=== PATIENT | female | born 1965 | race Caucasian/White ===

== ENCOUNTER 2019-07-23 12:40 | Day surgery (SDC) | payer BC ==
[2012-10-22 11:02] VITALS: BP 140/98
[2019-07-23] MEDS ORDERED: Xylocaine 1% Vial 30 ML PF IJ ONE (12:41)
[2019-07-23] MEDS ORDERED: Sodium Chloride 0.9(Preservative Free) 10 ML IJ ONE (12:41)
[2019-07-23] MEDS ORDERED: Depo-Medrol 40 MG/ML IM ONE (12:41)
--- NOTE | 2019-07-23 15:07 | XRAY ---
Indication: Left L4-S1 JACKELINE. Intraoperative fluoroscopy was provided for 46 seconds. 4 digital spot images submitted for interpretation demonstrate posterior needle tips projecting over the expected course of the left L4 and L5 nerve roots. Small amount of contrast injected for needle tip placement. Correlate with intraoperative findings/report.
--- NOTE | 2019-07-23 15:41 | XRAY ---
46 seconds fluoroscopy time in surgery for left L4-S1 JACKELINE.
== END 2019-07-23 14:00 | disposition home or self-care (01) ==
LOC: SDC-PAIN 12:40
PROVIDERS: ATTEND Psychiatry & Neurology Pain Medicine
DX: M54.16 Radiculopathy, lumbar region (principal); I10 Essential (primary) hypertension; G25.81 Restless legs syndrome; F41.0 Panic disorder [episodic paroxysmal anxiety]; F32.9 Major depressive disorder, single episode, unspecified; Z79.899 Other long term (current) drug therapy
CPT/HCPCS: 64483; 64484; 72100; 77003; J1030; J2001; Q9966

== ENCOUNTER 2019-08-27 15:52 | Day surgery (SDC) | payer BC ==
[2012-10-22 11:02] VITALS: BP 140/98
[2019-08-27] MEDS ORDERED: Depo-Medrol 40 MG/ML IM ONE (15:53)
[2019-08-27] MEDS ORDERED: Marcaine 0.5% SDV 10 ML IJ ONE (15:53)
[2019-08-27] MEDS ORDERED: Xylocaine 1% Vial 30 ML PF IJ ONE (15:53)
[2019-08-27] MEDS ORDERED: Lactated Ringers 1,000 ML IV ONE (18:24)
--- NOTE | 2019-08-27 19:30 | XRAY ---
Indication: Left knee injection. Intraoperative fluoroscopy was provided for 7 seconds. Single digital spot image submitted for interpretation demonstrates needle tip projecting over the left femur intercondylar notch. Small amount of contrast injected for needle tip placement. Correlate with intraoperative findings/report.
--- NOTE | 2019-08-27 19:30 | XRAY ---
Indication: Right knee injection. Intraoperative fluoroscopy was provided for 9 seconds. Single digital spot image submitted for interpretation demonstrates needle tip projecting over the right femur intercondylar notch. Small amount of contrast injected for needle tip placement. Correlate with intraoperative findings/report.
--- NOTE | 2019-08-28 13:33 | XRAY ---
9 seconds fluoroscopy time in surgery for right knee injection.
--- NOTE | 2019-08-28 13:33 | XRAY ---
7 seconds fluoroscopy time in surgery for left knee injection.
== END 2019-08-27 18:26 | disposition home or self-care (01) ==
LOC: SDC-PAIN 15:52
PROVIDERS: ATTEND Psychiatry & Neurology Pain Medicine
DX: M17.0 Bilateral primary osteoarthritis of knee (principal); Z79.899 Other long term (current) drug therapy
CPT/HCPCS: 20610; 73560; 77002; J1030; J2001; Q9966

== ENCOUNTER 2020-03-22 05:51 | Day surgery (SDC) | payer BC ==
[2020-03-22] MEDS ORDERED: Lactated Ringers 1,000 ML IV SCH (06:30)
[2020-03-22] MEDS ORDERED: DIPRIVAN 200 MG/20 ML IV ONE (07:28)
[2020-03-22] MEDS ORDERED: Xylocaine-Mpf 2% 5 Ml Vial ONE (07:52)
[2020-03-22 08:26] VITALS: O2SAT 97
[2020-03-22 08:44] VITALS: BP 153/90; PULSE 87
--- NOTE | 2020-03-22 16:14 | OP ---
SURGERY DATE: 03/22/2020 SURGERY TIME: 736 PREOPERATIVE DIAGNOSIS: 1. CHOKING IN THE MIDDLE OF THE NIGHT. POSTOPERATIVE DIAGNOSIS: 1. GASTROPARESIS. PROCEDURE: 1. Esophagogastroduodenoscopy. SURGEON: Dr. Woodson. ANESTHESIA: MAC, given by the Anesthesia Department. BRIEF HISTORY: The patient is a 54 y/o, obese, WF who reports she has been having trouble choking in the middle of the night. She reports that she does not feel anything coming up. They have tried her on some omeprazole with no significant relief. It was felt the patient needed to have endoscopic evaluation. The patient was appraised of the risks of the procedure including the risk of perforation, phlebitis, untoward reaction to medication, bleeding, and missed lesions. The patient verbalized her understanding and desired to have the procedure performed. DESCRIPTION OF PROCEDURE: The patient was given the medications by the Anesthesia Department. She had continuous pulse oximetry, ECG monitoring, intermittent BP monitoring, and end tidal CO2 monitoring during the examination. She was placed in the left lateral decubitus position. A bite block was placed and the flexible Olympus gastroscope was used to intubate the oropharynx. The scope was passed in the esophagus which appeared to be normal throughout its length. The stomach was entered where large amounts of retained gastric food products were seen. We were unable to suction it clear. The gastric rugal folds distended nicely with the insufflation of air. The scope was passed along the greater curvature of the stomach to the antrum. The pylorus was encountered and intubated. The duodenum was found to be normal. The scope was withdrawn towards the stomach again. A retroflex view was obtained. However, we were unable to see the esophagogastric junction due to the large amounts of gastric food products. Again, we tried to suction this clear, but precluded our evaluation of the lower esophageal sphincter from below. There did not appear to be any obvious hiatal hernia that we could see during the procedure. The scope was removed from the patient who tolerated the procedure well and was sent back to OP recovery in good condition.
== END 2020-03-22 08:52 | disposition home or self-care (01) ==
LOC: SDC 05:51
PROVIDERS: ATTEND Family Medicine
DX: K31.84 Gastroparesis (principal); Z79.899 Other long term (current) drug therapy
CPT/HCPCS: J2704

== ENCOUNTER 2020-06-21 12:44 | Emergency (ER) | payer BC ==
[2020-06-21] MEDS ORDERED: Zofran 4 MG/2 ML VIAL ONE (13:00)
[2020-06-21] MEDS ORDERED: Sodium Chloride 0.9% 1000 ML 1,000 ML ONE (13:00)
[2020-06-21] MEDS ORDERED: Zofran 4 MG/2 ML VIAL IV ONE (13:28)
[2020-06-21] MEDS ORDERED: Sodium Chloride 0.9% 1000 ML 1,000 ML IV STA (13:28)
[2020-06-21 14:11] LABS: Absolute Neutrophil Ct (ANC) 1.74 (1.4-6.9); Basophil (Absolute #) 0 (0-0.4); Eosinophil % 0.7 % (0.00-5.0); Eosinophil (Absolute #) 0.02 (0-0.5); Hematocrit 42.3 % (35-47); Lymphocyte (Absolute #) 0.69 (1.0-4.6); Lymphocytes % 25.7 % (24.0-44.0); Mean Cell Volume 90.8 fl (78-100); Mean Corpuscular Hgb Concent. 33.1 g/dl (32-36); Mean Platelet Volume 12.8 fl (7.5-11.0); Monocyte (Absolute #) 0.24 (0.0-1.3); Monocytes % 8.9 % (0.0-12.0); Neutrophil % 64.7 % (36.0-66.0); Platelet Count 133 K/mm3 (150-450); Red Blood Count 4.66 M/mm3 (4.1-5.4); Red Cell Distribution Width 14.4 % (11.5-14.0); White Blood Count 2.7 K/mm3 (4.0-10.5)
[2020-06-21 14:22] LABS: ALBUMIN 4.2 g/dL (3.5-5.0); ALKALINE PHOSPHATASE 85 U/L (38-126); ANION GAP 11.3 MEQ/L (5-15); BLOOD UREA NITROGEN 22 mg/dL (7-17); CHLORIDE 99 mmol/L (98-107); Calcium 8.5 mg/dL (8.4-10.2); Carbon Dioxide 29 mmol/L (22-30); Creatinine 1 0.95 mg/dL (0.52-1.04); EST GLOMERULAR FILTRATION RATE > 60.0 ML/MIN; Glucose 128 mg/dL (74-106); LIPASE 249 U/L (23-300); Potassium 3.1 mmol/L (3.5-5.1); SGOT/AST 124 U/L (14-36); SGPT/ALT 105 U/L (0-35); SODIUM 137 mmol/L (137-145); Total Protein 7.5 g/dL (6.3-8.2)
[2020-06-21 14:53] LABS: MAGNESIUM 2.3 mg/dL (1.6-2.3); TSH, 3RD Generation 3.3 mIU/L (0.47-4.68)
--- NOTE | 2020-06-21 15:19 | ERPHSYRPT ---
- History of Present Illness Time Seen by Provider: 06/21/20 13:10 Source: patient Exam Limitations: no limitations Patient Subjective Stated Complaint: covid positive with vomiting, diarrhea, no energy Triage Nursing Assessment: Pt brought to the ER by her son, pt was tested on Sunday for Covid and got + results on Sunday, pt has been laying in bed for the past several days not eating or drinking, pt vomits and has diarrhea everytime she attempts to put something in her mouth, skin n/w/d, afebrile, vitals wnl, denies pain, no energy or strength, other family member are positive but asymptomatic, lungs clear, bowel sounds heard in all 4 Physician History: 55 years old female presented in the ER with chief complaint of gastroenteritis with generalized weakness fatigue. Patient was tested positive last week for COVID-19 as she was feeling sick for the last 10 days. She is having multiple episodes of nonprojectile, nonbilious vomiting with no hematemesis and also loose watery stool. Patient reports she is not able to hold much down. Denies any abdominal pain fever or chills. Denies any chest pain palpitations or shortness of breath. Denies any cough. She is having generalized body aches. She feels fatigued and tired with no energy to do her routine activities. Patient feels dehydrated. Timing/Duration: day(s) (10), gradual onset, worse Severity: moderate Associated Symptoms: nausea, vomiting, loss of appetite, malaise, weakness, No abdominal pain, No shortness of breath, No heartburn, No cough, No chills, No chest pain, No fever, No headaches, No seizure Allergies/Adverse Reactions: No Known Drug Allergies Allergy (Verified 03/22/20 06:08) Home Medications: Lisinopril/Hydrochlorothiazide [Lisinopril-Hctz 20-12.5 mg Tab] 1 tab PO DAILY 10/22/12 [History] Venlafaxine HCl ER 75 mg [Effexor XR 75 MG] 75 mg PO .1600 06/02/15 [History] Venlafaxine HCl [Venlafaxine HCl ER] 150 mg PO DAILY 06/02/15 [History] Ergocalciferol (Vitamin D2) [Vitamin D2] 50,000 unit PO Q7D 03/16/20 [History] Gabapentin 600 mg PO TID 03/16/20 [History] Levothyroxine Sodium 50 Mcg [Synthroid 50 Mcg] 50 mcg PO DAILY 03/16/20 [History] Omeprazole 20 mg PO DAILY 03/16/20 [History] Phentermine HCl [Adipex-P] 37.5 mg PO DAILY 03/16/20 [History] Hx Tetanus, Diphtheria Vaccination/Date Given: Yes Hx Influenza Vaccination/Date Given: Yes Hx Pneumococcal Vaccination/Date Given: Yes Immunizations Up to Date: Yes Travel Risk - International Travel Have you traveled outside of the country in past 3 weeks: No - Coronavirus Screening Are you exhibiting any of the following symptoms?: Yes Symptoms: Vomiting/Diarrhea, Loss of Taste or Smell, Headaches/Body Aches/Fatigue Close contact with a COVID-19 positive Pt in past 14-21 Days: Yes - Review of Systems Constitutional: Fatigue, Malaise, Weakness Eyes: No Symptoms Ears, Nose, & Throat: No Symptoms Respiratory: No Symptoms Cardiac: No Symptoms Abdominal/Gastrointestinal: Nausea, Vomiting, Diarrhea Genitourinary Symptoms: No Symptoms Musculoskeletal: Myalgias Skin: No Symptoms Neurological: No Symptoms Psychological: No Symptoms Endocrine: No Symptoms Hematologic/Lymphatic: No Symptoms Immunological/Allergic: No Symptoms - Past Medical History Pertinent Past Medical History: Yes Neurological History: Migraines, TIA ENT History: No Pertinent History Cardiac History: Hypertension Respiratory History: Asthma, Sleep Apnea Endocrine Medical History: Hypothyroidism Musculoskeletal History: Osteoarthritis GI Medical History: GERD History: No Pertinent History Psycho-Social History: Depression Female Reproductive Disorders: No Pertinent History Other Medical History: CVA - Past Surgical History Past Surgical History: Yes Neuro Surgical History: No Pertinent History Cardiac: No Pertinent History Respiratory: No Pertinent History Gastrointestinal: Cholecystectomy Genitourinary: No Pertinent History Musculoskeletal: No Pertinent History Female Surgical History: Hysterectomy, Lumpectomy Other Surgical History: TONSILECTOMY, tubal reversal - Social History Smoking Status: Never smoker Exposure to second hand smoke: No Drug Use: none Patient Lives Alone: No - Nursing Vital Signs Nursing Vital Signs: Initial Vital Signs Temperature 98.7 F 06/21/20 12:49 Pulse Rate 97 H 06/21/20 12:49 Respiratory Rate 13 06/21/20 12:49 Blood Pressure 138/111 06/21/20 12:49 O2 Sat by Pulse Oximetry 98 06/21/20 12:49 Pain Scale Pain Intensity 0 - Physical Exam General Appearance: no apparent distress, alert Eye Exam: PERRL/EOMI, eyes nml inspection Ears, Nose, Throat Exam: normal ENT inspection, TMs normal, pharynx normal, moist mucous membranes Neck Exam: normal inspection, non-tender, supple, full range of motion Respiratory Exam: normal breath sounds, lungs clear Cardiovascular Exam: regular rate/rhythm, normal heart sounds Gastrointestinal/Abdomen Exam: soft, normal bowel sounds, No tenderness Back Exam: normal inspection, normal range of motion, No CVA tenderness Extremity Exam: normal inspection, normal range of motion Neurologic Exam: alert, oriented x 3, cooperative, vp respiratory II-XII nml as tested, normal mood/affect Skin Exam: normal color SpO2 Interpretation: normal SpO2: 98 O2 Delivery: Room Air - Course Nursing assessment & vital signs reviewed: Yes EKG Interpreted by Me: RATE, Sinus Rhythm, NORMAL AXIS, NORMAL INTERVALS, NORMAL QRS (97), Non-specific ST Changes (Inferior leads) Ordered Tests: Active Orders 24 hr Category Date Time Status EKG-ER Only STAT Care 06/21/20 13:28 Active IV Insertion STAT Care 06/21/20 13:28 Active NPO (ED) STAT Care 06/21/20 13:28 Active OBSTR/ACUTE ABDOMEN SERIES Stat Exams 06/21/20 13:28 Taken CBC W DIFF Stat Lab 06/21/20 13:55 Completed CMP Stat Lab 06/21/20 13:55 Completed LIPASE Stat Lab 06/21/20 13:55 Completed Lactic Acid Stat Lab 06/21/20 14:18 Completed MAG [MAGNESIUM] Stat Lab 06/21/20 13:55 Completed TROPONIN Q3H Lab 06/21/20 13:55 Completed TROPONIN Q3H Lab 06/21/20 16:30 Ordered TROPONIN Q3H Lab 06/21/20 19:30 Ordered TROPONIN Q3H Lab 06/21/20 22:30 Ordered TROPONIN Q3H Lab 06/22/20 01:30 Ordered TSH [TSH, 3RD Generation] Stat Lab 06/21/20 13:55 Completed UA W/RFX UR CULTURE Stat Lab 06/21/20 15:43 Ordered Medication Summary Discontinued Medications Generic Name Dose Route Start Last Admin Trade Name Freq PRN Reason Stop Dose Admin Sodium Chloride Confirm 06/21/20 13:00 Sodium Chloride 0.9% 1000 Ml Administered 06/21/20 13:01 Dose 1,000 mls @ ud .ROUTE .STK-MED ONE Sodium Chloride 1,000 mls @ 999 mls/hr 06/21/20 13:28 06/21/20 15:49 Sodium Chloride 0.9% 1000 Ml IV 06/21/20 14:28 Infused .Q1H1M STA Infusion Ondansetron HCl Confirm 06/21/20 13:00 Zofran 4 Mg/2 Ml Vial Administered 06/21/20 13:01 Dose 4 mg .ROUTE .STK-MED ONE Ondansetron HCl 4 mg 06/21/20 13:28 06/21/20 13:05 Zofran 4 Mg/2 Ml Vial IV 06/21/20 13:29 4 mg STAT ONE Administration Lab/Rad Data: Laboratory Result Diagrams 06/21/20 13:55 06/21/20 13:55 Laboratory Results 06/21/20 06/21/20 06/21/20 Range/Units 14:18 13:55 13:55 WBC (4.0-10.5) K/mm3 RBC (4.1-5.4) M/mm3 Hgb (12.0-16.0) gm/dl Hct (35-47) % MCV (78-100) fl MCH (26-32) pg MCHC (32-36) g/dl RDW (11.5-14.0) % Plt Count (150-450) K/mm3 MPV (7.5-11.0) fl Gran % (36.0-66.0) % Eos # (Auto) (0-0.5) Absolute Lymphs (auto) (1.0-4.6) Absolute Monos (auto) (0.0-1.3) Lymphocytes % (24.0-44.0) % Monocytes % (0.0-12.0) % Eosinophils % (0.00-5.0) % Basophils % (0.0-0.4) % Absolute Granulocytes (1.4-6.9) Basophils # (0-0.4) Sodium (137-145) mmol/L Potassium (3.5-5.1) mmol/L Chloride (98-107) mmol/L Carbon Dioxide (22-30) mmol/L Anion Gap (5-15) MEQ/L BUN (7-17) mg/dL Creatinine (0.52-1.04) mg/dL Estimated GFR ML/MIN Glucose (74-106) mg/dL Lactic Acid 2.3 H (0.4-2.0) Calcium (8.4-10.2) mg/dL Magnesium 2.3 (1.6-2.3) mg/dL Total Bilirubin (0.2-1.3) mg/dL AST (14-36) U/L ALT (0-35) U/L Alkaline Phosphatase (38-126) U/L Troponin I < 0.012 (0.000-0.034) ng/mL Serum Total Protein (6.3-8.2) g/dL Albumin (3.5-5.0) g/dL Lipase (23-300) U/L TSH 3rd Generation 3.300 (0.47-4.68) mIU/L 06/21/20 06/21/20 Range/Units 13:55 13:55 WBC 2.7 L (4.0-10.5) K/mm3 RBC 4.66 (4.1-5.4) M/mm3 Hgb 14.0 (12.0-16.0) gm/dl Hct 42.3 (35-47) % MCV 90.8 (78-100) fl MCH 30.0 (26-32) pg MCHC 33.1 (32-36) g/dl RDW 14.4 H (11.5-14.0) % Plt Count 133 L (150-450) K/mm3 MPV 12.8 H (7.5-11.0) fl Gran % 64.7 (36.0-66.0) % Eos # (Auto) 0.02 (0-0.5) Absolute Lymphs (auto) 0.69 L (1.0-4.6) Absolute Monos (auto) 0.24 (0.0-1.3) Lymphocytes % 25.7 (24.0-44.0) % Monocytes % 8.9 (0.0-12.0) % Eosinophils % 0.7 (0.00-5.0) % Basophils % 0.0 (0.0-0.4) % Absolute Granulocytes 1.74 (1.4-6.9) Basophils # 0 (0-0.4) Sodium 137 (137-145) mmol/L Potassium 3.1 L (3.5-5.1) mmol/L Chloride 99 (98-107) mmol/L Carbon Dioxide 29 (22-30) mmol/L Anion Gap 11.3 (5-15) MEQ/L BUN 22 H (7-17) mg/dL Creatinine 0.95 (0.52-1.04) mg/dL Estimated GFR > 60.0 ML/MIN Glucose 128 H (74-106) mg/dL Lactic Acid (0.4-2.0) Calcium 8.5 (8.4-10.2) mg/dL Magnesium (1.6-2.3) mg/dL Total Bilirubin 1.00 (0.2-1.3) mg/dL AST 124 H (14-36) U/L ALT 105 H (0-35) U/L Alkaline Phosphatase 85 (38-126) U/L Troponin I (0.000-0.034) ng/mL Serum Total Protein 7.5 (6.3-8.2) g/dL Albumin 4.2 (3.5-5.0) g/dL Lipase 249 (23-300) U/L TSH 3rd Generation (0.47-4.68) mIU/L - Progress Progress: improved, re-examined Progress Note: 06/21/20 15:58 55 years old is evaluated for gastroenteritis symptoms with positive COVID-19. She is given a fluid bolus along with Zofran, on reevaluation feeling better. I have obtained x-rays acute abdomen series which are grossly negative, official read is pending. She has a low white count and platelets consistent with COVID- 19 infection. She is mildly dehydrated and has a lactate of 2.3. Does not seems to be in any distress or toxic appearance. She also has mildly low potassium and given oral potassium replacement. Do not think patient needs to be admitted or any further work-up in the ER, and will give her Zofran to go home. Discussed with patient in detail about symptoms/signs of worsening needing return to ER which he seems understanding. Counseled pt/family regarding: lab results, diagnosis, need for follow-up, rad results - Departure Departure Disposition: Home Clinical Impression: Viral syndrome, COVID-19, General weakness, Hypokalemia Condition: Stable Critical Care Time: No Referrals: RAYSHAWN CROWE MD [Primary Care Provider] - Follow Up with PCP/3 days Instructions: Viral Gastroenteritis, Hypokalemia (DC) Additional Instructions: Drink plenty of fluids. Take Zofran as needed. Follow-up with your primary care physician for reevaluation. Return to ER for worsening vomiting/diarrhea or if develop fever chills/shortness of breath etc. Prescriptions: Ondansetron ODT 4 MG [Zofran Odt 4 mg] 4 mg PO Q6H PRN PRN #10 tab.rapdis PRN Reason: Vomiting
[2020-06-21 16:09] LABS: Appearance SLIGHTLY CLOUDY (CLEAR); Bilirubin NEGATIVE (NEGATIVE); Blood NEGATIVE Ery/ul (0-5); Epithelial Cells RARE /HPF (FEW); Glucose NEGATIVE (NEGATIVE); Ketones NEGATIVE (NEGATIVE); Leukocyte Esterase NEGATIVE (NEGATIVE); Mucus SLIGHT /HPF (NEGATIVE); Nitrite NEGATIVE (NEGATIVE); Protein,Urine Dip 30 (Negative); Specific Gravity 1.023 (1.005-1.025); Urobilinogen NEGATIVE mg/dL (0-1)
[2020-06-21 16:32] VITALS: BP 124/81; PULSE 84; O2SAT 96
--- NOTE | 2020-06-21 18:27 | XRAY ---
Indication: Vomiting and diarrhea. COVID 19 positive. Comparison: Chest exam June 02, 2015. 2 views abdomen demonstrate nonspecific nonobstructed bowel gas pattern with previous cholecystectomy. Solid organs are unremarkable. Osseous structures intact with mild lumbar degenerative spondylosis and mild curvature thoracolumbar scoliosis. Single frontal chest underinflated with minimal bibasilar subsegmental atelectasis/scarring. No focal infiltrate, consolidation, or large effusion. Heart is not enlarged. Impression: Nonacute nonobstructed abdomen. Nonacute underinflated chest.
== END 2020-06-21 16:48 | disposition home or self-care (01) ==
LOC: ED 12:44
DX: B34.9 Viral infection, unspecified (principal)
CPT/HCPCS: 36415; 74022; 80053; 81001; 83605; 83690; 83735; 84443; 84484; 85025; 93005; 96360; 96374; 99284; J2405

== ENCOUNTER 2025-07-11 15:19 | Observation (INO) | payer BC ==
--- NOTE | 2025-07-11 15:46 | ERPHSYRPT ---
- History of Present Illness Source: patient, EMS, old records Exam Limitations: no limitations Patient Subjective Stated Complaint: PT HERE FOR NUMBNESS TO LEFT ARM AND STARTED ABOUT 2 HOURS AGO AND NOW STATES NUMBNESS TO FACE, NO INJURY, SHE STATES SHE WAS DRIVING WHEN IT HAPPENED Triage Nursing Assessment: PT ALERT, WALKED IN, NO LIMP, RESP EASY, SKIN W/D/P. MOVES ALLL EXT WELL, GRIKP EQUAL, AND STRONG, Timing/Duration: today, improved Severity: mild Character of Deficits: altered sensation (Left facial and left upper extremity numbness), Left Facial Deficits: no difficulties Baseline/Normal Cognition: alert oriented x 3 Current Cognition: alert oriented x 3 Baseline Gait: walks w/o assistance Associated Symptoms: denies symptoms, No confusion, No loss of consciousness, No numbness/tingling in legs/feet, No seizures, No vision changes, No chest pain, No headache Hx Tetanus, Diphtheria Vaccination/Date Given: Yes Hx Influenza Vaccination/Date Given: No Hx Pneumococcal Vaccination/Date Given: Yes Immunizations Up to Date: Yes <JACKI SOUZA - Last Filed: 07/11/25 19:14> <CHRIS HASTINGS - Last Filed: 07/11/25 22:03> - History of Present Illness Time Seen by Provider: 07/11/25 15:35 Physician History: This is an overweight 60-year-old white female patient who arrives by private vehicle and is a patient of Dr. Aguila secondary to sudden onset of left arm numbness followed by left facial numbness that occurred while the patient was driving a car. Patient denies any type of injury. There is been no new medications. She has never had this sensation before. She denies chest pain. She denies shortness of breath. Patient has no other symptoms. By the time she arrived to the emergency department her symptoms are still present but have improved significantly. Patient has a history of diabetes, hypothyroidism, depression. (JACKI SOUZA) Allergies/Adverse Reactions: No Known Drug Allergies Allergy (Verified 07/11/25 15:27) Home Medications: Venlafaxine HCl ER 75 mg [Effexor XR 75 MG] 75 mg PO .1600 06/02/15 [History] Venlafaxine HCl [Venlafaxine HCl ER] 150 mg PO DAILY 06/02/15 [History] Ergocalciferol (Vitamin D2) [Vitamin D2] 50,000 unit PO Q7D 03/16/20 [History] Gabapentin 600 mg PO TID 03/16/20 [History] Levothyroxine Sodium 50 Mcg [Synthroid 50 Mcg] 125 mcg PO DAILY 03/16/20 [History] Semaglutide [Ozempic] 2 mg SQ UD 07/11/25 [History] Travel Risk - International Travel Have you traveled outside of the country in past 3 weeks: No - Emerging Infectious Disease Are you exhibiting symptoms associated with any current EIDs: No <JACKI SOUZA - Last Filed: 07/11/25 19:14> - Review of Systems Constitutional: No Symptoms Eyes: No Symptoms Ears, Nose, & Throat: No Symptoms Respiratory: No Symptoms Cardiac: No Symptoms Abdominal/Gastrointestinal: No Symptoms Genitourinary Symptoms: No Symptoms Musculoskeletal: No Symptoms Skin: No Symptoms Neurological: Parasthesia (Left face and left upper extremity), No Dizziness, No Headache, No Paralysis, No Speech Changes Psychological: No Symptoms Endocrine: No Symptoms Hematologic/Lymphatic: No Symptoms Immunological/Allergic: No Symptoms All Other Systems: Reviewed and Negative <JACKI SOUZA - Last Filed: 07/11/25 19:14> - Past Medical History Pertinent Past Medical History: Yes Neurological History: Peripheral Neuropathy, TIA, Other ENT History: No Pertinent History Respiratory History: Other Endocrine Medical History: Hypothyroidism Musculoskeletal History: Fractures, Osteoarthritis GI Medical History: GERD History: No Pertinent History Psycho-Social History: Depression Female Reproductive Disorders: No Pertinent History Other Medical History: 2014 HAD SEIZURE/STROKE EPISODE WITH SLURRING OF WORDS AND WEAKNESS LEFT SIDE - NO RESIDUAL. HX OF COVID 05/2020. FX LEFT LOWER LEG WHEN LEG WAS PINNED BY FORK LIFT - TX'D WITH CAST IN 2013 - Past Surgical History Past Surgical History: Yes Neuro Surgical History: No Pertinent History Cardiac: No Pertinent History Respiratory: No Pertinent History Gastrointestinal: Cholecystectomy Genitourinary: No Pertinent History Musculoskeletal: No Pertinent History Female Surgical History: Hysterectomy, Section, Lumpectomy Other Surgical History: TONSILECTOMY, tubal reversal - Social History Smoking Status: Never smoker Exposure to second hand smoke: No Drug Use: none - Social Determinants of Health Will the patient participate in the screening: Yes Do you worry about a steady place to live?: No Do you have any problems with any of the following?: No known problems In the past 12 months,have you had to go without utilities?: No Transportation Issues: No Has anyone in your support network made you feel unsafe?: No Have you or anyone in your house had to go w/o enough food: No <JACKI SOUZA - Last Filed: 07/11/25 19:14> - [place] Coma Scale Best Eye Response ([place]): (4) open spontaneously Best Verbal Response ([place]): (5) oriented Best Motor Response ([place]): (6) obeys commands Jennifer Total: 15 - Physical Exam General Appearance: no apparent distress, alert, anxiety Eye Exam: bilateral eye: normal inspection, PERRL, EOMI Ears, Nose, Throat Exam: normal ENT inspection, moist mucous membranes Neck Exam: normal inspection, non-tender, supple, full range of motion Respiratory: normal breath sounds, lungs clear, airway intact, No chest tenderness, No respiratory distress Cardiovascular: regular rate/rhythm, normal heart sounds, normal peripheral pulses Gastrointestinal: soft, normal bowel sounds, No tenderness Pelvic Exam: not done Rectal Exam: not done Back Exam: normal inspection, normal range of motion, No CVA tenderness, No vertebral tenderness Extremity Exam: normal inspection, normal range of motion, pelvis stable Mental Status: alert, oriented x 3, cooperative layout man Exam: normal hearing, normal speech, PERRL, tongue midline Coordination/Gait: normal finger to nose, normal gait, normal cerebellar function Motor/Sensory: no motor deficit, no sensory deficit Skin Exam: normal color, warm, dry SpO2 Interpretation: normal SpO2: 98 O2 Delivery: Room Air <JACKI SOUZA - Last Filed: 07/11/25 19:14> - Nursing Vital Signs Nursing Vital Signs: Initial Vital Signs Temperature 96.9 F 07/11/25 15:32 Pulse Rate 77 07/11/25 15:32 Respiratory Rate 14 07/11/25 15:32 Blood Pressure 150/111 07/11/25 15:32 O2 Sat by Pulse Oximetry 98 07/11/25 15:32 Pain Scale Pain Intensity 0 - Course Nursing assessment & vital signs reviewed: Yes <JACKI SOUZA - Last Filed: 07/11/25 19:14> Ordered Tests: Active Orders 24 hr Category Date Time Status Call Admit Doctor for Orders ON ADMISSION Care 07/11/25 21:43 Active Cylindrical Mixer STAT Care 07/11/25 15:46 Completed Code Status Order ROUTINE Care 07/11/25 21:43 Active EKG-ER Only STAT Care 07/11/25 15:46 Completed IV Insertion STAT Care 07/11/25 15:46 Completed NPO (ED) STAT Care 07/11/25 15:46 Completed Neuro Checks Q4H Care 07/11/25 21:[address] in Observation ROUTINE Care 07/11/25 21:43 Active Pulse Oximetry (ED) STAT Care 07/11/25 15:46 Completed Consult Neurology ROUTINE Cons 07/11/25 16:49 Completed House Regular Diet Diet 07/12/25 Breakfast Active CAROTID BILATERAL [US] Stat Exams 07/11/25 19:[address] ANGIOGRAPHY NECK [CT] Stat Exams 07/11/25 16:26 Completed CTA HEAD W AND/OR WO CONTRAST [CT] Stat Exams 07/11/25 16:25 Completed HEAD WITHOUT CONTRAST [CT] Stat Exams 07/11/25 15:25 Completed CBC W DIFF Stat Lab 07/11/25 16:05 Completed CMP Stat Lab 07/11/25 16:05 Completed PROTIME WITH INR Stat Lab 07/11/25 16:05 Completed PTT Stat Lab 07/11/25 16:05 Completed TSH [TSH, 3RD Generation] Stat Lab 07/11/25 16:05 Completed UA W/RFX UR CULTURE Stat Lab 07/11/25 16:45 Completed Transfer Order Routine Transfer 07/11/25 Completed Lab/Rad Data: Laboratory Result Diagrams 07/11/25 16:05 07/11/25 16:05 Laboratory Results 07/11/25 07/11/25 07/11/25 Range/Units 16:45 16:05 16:05 WBC (3.98-10.04) x10^3/uL RBC (3.93-5.22) x10^6/uL Hgb (11.2-15.7) g/dL Hct (34.1-44.9) % MCV (79.4-94.8) fL MCH (25.6-32.2) pg MCHC (32.2-35.5) g/dL RDW (11.7-14.4) % Plt Count (182-369) x10^3/uL MPV (9.4-12.3) fL Gran % (34.0-71.1) % Immature Gran % (Auto) (0.001-0.429) % Nucleat RBC Rel Count (0.00-0.2) % Eos # (Auto) (0.04-0.36) x10^3/uL Immature Gran # (Auto) (0.001-0.031) x10^3u/L Absolute Lymphs (auto) (1.18-3.74) x10^3/uL Absolute Monos (auto) (0.24-0.86) x10^3/uL Absolute Nucleated RBC (0.00-0.012) x10^3u/L Lymphocytes % (19.3-51.7) % Monocytes % (4.7-12.5) % Eosinophils % (0.7-5.8) % Basophils % (0.1-1.2) % Absolute Granulocytes (1.56-6.13) x10^3/uL Basophils # (0.01-0.08) x10^3/uL PT (9.4-12.5) SECONDS INR (0.8-3.0) APTT (25.1-36.5) SECONDS Sodium 139 (135-145) mmol/L Potassium 3.2 L (3.5-5.1) mmol/L Chloride 102 (98-107) mmol/L Carbon Dioxide 26 (22-30) mmol/L Anion Gap 15.2 H (5-15) MEQ/L BUN 16 (7-17) mg/dL Creatinine 0.72 (0.52-1.04) mg/dL Estimated GFR 95.1 ML/MIN Glucose 101 (74-106) mg/dL Calcium 9.4 (8.4-10.2) mg/dL Total Bilirubin 2.40 H (0.2-1.3) mg/dL AST 29 (14-36) U/L ALT 20 (0-35) U/L Alkaline Phosphatase 87 (38-126) U/L Serum Total Protein 7.5 (6.3-8.2) g/dL Albumin 4.5 (3.5-5.0) g/dL TSH 3rd Generation 0.480 (0.470-4.680) mIU/L Urine Color Dark Yellow A (Yellow) Urine Appearance Clear (Clear) Urine pH 6.5 (4.6-8.0) Ur Specific [place] >=1.030 A (1.005-1.030) Urine Protein Trace A (Negative) Urine Glucose (UA) >=1000 A (Negative) mg/dL Urine Ketones >=160 A (Negative) Urine Blood Negative (Negative) Urine Nitrite Negative (Negative) Urine Bilirubin Negative (Negative) Urine Urobilinogen >=8.0 A (0.2) mg/dL Ur Leukocyte Esterase Negative (Negative) U Hyaline Cast (Auto) NONE SEEN (0-2) /LPF Urine Microscopic RBC 0-2 (0-5) /HPF Urine Microscopic WBC 6-10 A (0-5) /HPF Ur Epithelial Cells None Seen (None Seen) /HPF Urine Bacteria None Seen (None Seen) /HPF Urine Culture Reflexed NO (NO) 07/11/25 07/11/25 Range/Units 16:05 16:05 WBC 7.6 (3.98-10.04) x10^3/uL RBC 5.02 (3.93-5.22) x10^6/uL Hgb 15.1 (11.2-15.7) g/dL Hct 43.9 (34.1-44.9) % MCV 87.5 (79.4-94.8) fL MCH 30.1 (25.6-32.2) pg MCHC 34.4 (32.2-35.5) g/dL RDW 13.7 (11.7-14.4) % Plt Count 241 (182-369) x10^3/uL MPV 10.9 (9.4-12.3) fL Gran % 74.4 H (34.0-71.1) % Immature Gran % (Auto) 0.1 (0.001-0.429) % Nucleat RBC Rel Count 0.0 (0.00-0.2) % Eos # (Auto) 0.04 (0.04-0.36) x10^3/uL Immature Gran # (Auto) 0.01 (0.001-0.031) x10^3u/L Absolute Lymphs (auto) 1.42 (1.18-3.74) x10^3/uL Absolute Monos (auto) 0.40 (0.24-0.86) x10^3/uL Absolute Nucleated RBC 0.00 (0.00-0.012) x10^3u/L Lymphocytes % 18.8 L (19.3-51.7) % Monocytes % 5.3 (4.7-12.5) % Eosinophils % 0.5 L (0.7-5.8) % Basophils % 0.9 (0.1-1.2) % Absolute Granulocytes 5.63 (1.56-6.13) x10^3/uL Basophils # 0.07 (0.01-0.08) x10^3/uL PT 12.0 (9.4-12.5) SECONDS INR 1.07 (0.8-3.0) APTT 26.9 (25.1-36.5) SECONDS Sodium (135-145) mmol/L Potassium (3.5-5.1) mmol/L Chloride (98-107) mmol/L Carbon Dioxide (22-30) mmol/L Anion Gap (5-15) MEQ/L BUN (7-17) mg/dL Creatinine (0.52-1.04) mg/dL Estimated GFR ML/MIN Glucose (74-106) mg/dL Calcium (8.4-10.2) mg/dL Total Bilirubin (0.2-1.3) mg/dL AST (14-36) U/L ALT (0-35) U/L Alkaline Phosphatase (38-126) U/L Serum Total Protein (6.3-8.2) g/dL Albumin (3.5-5.0) g/dL TSH 3rd Generation (0.470-4.680) mIU/L Urine Color (Yellow) Urine Appearance (Clear) Urine pH (4.6-8.0) Ur Specific [place] (1.005-1.030) Urine Protein (Negative) Urine Glucose (UA) (Negative) mg/dL Urine Ketones (Negative) Urine Blood (Negative) Urine Nitrite (Negative) Urine Bilirubin (Negative) Urine Urobilinogen (0.2) mg/dL Ur Leukocyte Esterase (Negative) U Hyaline Cast (Auto) (0-2) /LPF Urine Microscopic RBC (0-5) /HPF Urine Microscopic WBC (0-5) /HPF Ur Epithelial Cells (None Seen) /HPF Urine Bacteria (None Seen) /HPF Urine Culture Reflexed (NO) - Progress Progress: improved, re-examined <JACKI SOUZA - Last Filed: 07/11/25 19:14> - Progress Counseled pt/family regarding: lab results, diagnosis, need for follow-up, rad results <CHRIS HASTINGS - Last Filed: 07/11/25 22:03> - Progress Progress Note: 07/11/25 16:44 My medical decision making and the assignment of at least moderate complexity to high complexity is based on review of the patient's past medical history, review patient medication list, review of the patient drug allergy list, history present illness and physical findings on examination. The workup in this patient includes stat CT scan of the head without contrast, IV line placement, CBC, CMP, magnesium level, troponin level, twelve-lead EKG, urinalysis, [id number] stat glucose. If the CT scan of the head without contrast negative we will proceed with obtaining a teleneurology consultation, CT of the head with contrast and CT angiography of the neck. Differential diagnosis includes but is not limited to TIA, CVA, intracranial head bleed, electrolyte abnormalities, metabolic abnormality, urinary tract infection, dehydration, arrhythmia, acute thyroid abnormality 07/11/25 19:14 I am transferring care of this patient to Dr. Hastings at shift change. He will follow-up on pending study results and make final disposition. (JACKI SOUZA) Assumed care at 1900. CTA neck showed area near the right cervical internal carotid artery concerning for artifact versus dissection recommending ultrasound evaluation. Ultrasound was able to come into evaluate which ruled out dissection of the right internal carotid artery. Patient was asymptomatic at the time. Low suspicion for acute dissection. Patient to be admitted to the floor for MRI and echo on Sunday. Discussed admission with the hospitalist, Dr. Vallejo, at 2022 who accepted. (CHRIS HASTINGS) Medical Desision Making - Independent Historian Additional History obtained from: Family <JACKI SOUZA - Last Filed: 07/11/25 19:14> - Discussion of managment Care discussed with:: hospitalist Reviewed:: Test results, Need for additional workup Agreed on:: Treatment plan, place in obs Will see patient: in hospital - Diagnostic Testing Diagnostic test were ordered, analyzed, and reviewed by me: Yes Radiological Interpretation: Interpreted by me, Reviewed by me, Teleradiologist Report - Risk of complications The pt has a high risk of morbidity or mortality based on: Decision regarding hospitilization or escalation of hosp level of care <CHRIS HASTINGS - Last Filed: 07/11/25 22:03> - Departure Departure Disposition: Transfer Critical Care Time: Yes Critical Care Time(excluding separately billable procedures): Critical 30-74 mins (45) <JACKI SOUZA - Last Filed: 07/11/25 19:14> - Departure Departure Disposition: Observation <CHRIS HASTINGS - Last Filed: 07/11/25 22:03> - Departure Clinical Impression: Left facial numbness, Left arm numbness Condition: Stable
[2025-07-11 16:04] LABS: BASOPHIL % 0.9 % (0.1-1.2); Basophil (Absolute #) 0.07 x10^3/uL (0.01-0.08); Eosinophil (Absolute #) 0.04 x10^3/uL (0.04-0.36); Hematocrit 43.9 % (34.1-44.9); Hemoglobin 15.1 g/dL (11.2-15.7); IMMATURE GRAN # 0.01 x10^3u/L (0.001-0.031); IMMATURE GRAN % 0.1 % (0.001-0.429); Lymphocyte (Absolute #) 1.42 x10^3/uL (1.18-3.74); Mean Corpuscular Hemoglobin 30.1 pg (25.6-32.2); Mean Corpuscular Hgb Concent. 34.4 g/dL (32.2-35.5); Monocyte (Absolute #) 0.40 x10^3/uL (0.24-0.86); NUCLEATED RBC # 0.00 x10^3u/L (0.00-0.012); NUCLEATED RBC % 0.0 % (0.00-0.2); Platelet Count 241 x10^3/uL (182-369); Red Blood Count 5.02 x10^6/uL (3.93-5.22); White Blood Count 7.6 x10^3/uL (3.98-10.04)
--- NOTE | 2025-07-11 16:14 | XRAY ---
CLINICAL HISTORY: LEFT ARM NUMBNESS COMPARISON: No previous studies are available for comparison. TECHNIQUE: Axial non-contrast CT scan of the brain was performed from the skull base to the high parietal region. One of the following dose reduction techniques was utilized for this exam: automated exposure control, adjustment of the mA and/or kV according to patient size, and use of iterative reconstruction. CTDI: 53.92 mGy, DLP: 1016.25 mGy-cm. FINDINGS: Brain Parenchyma: Chronic deep white matter ischemia is noted, with exaggerated periventricular hypodensity. A right basal ganglia hypodense area of CSF density is consistent with an old infarction (series 2, images 26 and 27). The rest of the cerebral hemispheres, cerebellum, and brainstem demonstrate normal attenuation. There is no evidence of acute infarct, hemorrhage, or mass effect. There are no other abnormal areas of hypoattenuation or hyperattenuation. Ventricular System: The ventricles are normal in size and configuration. There is no evidence of hydrocephalus or ventricular enlargement. Subarachnoid Spaces: Cortical age-related involutional brain changes are noted, evidenced by prominent cortical sulci, widened subarachnoid spaces, and cisterns. There is no evidence of subarachnoid hemorrhage or extra-axial fluid collections. Cerebellum and Brainstem: There are no masses, lesions, or areas of abnormal density. Orbits: There is normal appearance of the globes, optic nerves, and extraocular muscles. There is no evidence of orbital masses or abnormal density. Sinuses: The scanned paranasal sinuses are clear. There is no evidence of sinusitis or mucosal thickening. Mastoid Air Cells: The mastoid air cells are clear. There is no evidence of mastoiditis. Skull: There is normal skull morphology. IMPRESSION: 1. No CT evidence of acute infarction or recent hemorrhage. If clinically suspected recent stroke, the MRI stroke protocol is recommended. 2. A right basal ganglia hypodense area of CSF density is consistent with an old infarction. 3. Chronic deep white matter ischemia. 4. Cortical age-related involutional brain changes. Electronically Signed by: Charlie Barnhart MD. (07/11/2025 16:13:31 EDT)
[2025-07-11 16:22] LABS: INR 1.07 (0.8-3.0); PROTIME 12.0 SECONDS (9.4-12.5); PTT 26.9 SECONDS (25.1-36.5)
[2025-07-11 17:41] LABS: Calcium 9.4 mg/dL (8.4-10.2); Carbon Dioxide 26.0 mmol/L (22-30); Creatinine 1 0.72 mg/dL (0.52-1.04); EST GLOMERULAR FILTRATION RATE 95.1 ML/MIN; Glucose 101.0 mg/dL (74-106); Potassium 3.2 mmol/L (3.5-5.1); SGOT/AST 29.0 U/L (14-36); SGPT/ALT 20.0 U/L (0-35); Total Protein 7.5 g/dL (6.3-8.2)
[2025-07-11 18:08] LABS: Glucose, Urine >=1000 mg/dL (Negative); Protein,Urine Dip Trace (Negative); RBC 0-2 /HPF (0-5)
--- NOTE | 2025-07-11 18:48 | XRAY ---
CLINICAL HISTORY: L facial and left side numbness COMPARISON: No previous studies are available for comparison. TECHNIQUE: CT angiography of the neck was performed following the intravenous administration of 80cc Isovue 370 iodinated contrast material. Axial images were obtained from the aortic arch to the vertex. Coronal and sagittal reformatted images were also reviewed. One of the following dose reduction techniques was utilized for this exam: automated exposure control, adjustment of the mA and/or kV according to patient size, and use of iterative reconstruction. One of these 3D techniques was utilized: Maximum Intensity Pixel (MIP), 3D reconstructed images, volume rendered images, or surface shaded rendering. FINDINGS: A hypodense linear area is noted along the proximal right cervical ICA, likely an artifact; however, Doppler US is advised to rule out dissection. Carotid arteries: The common, internal, and external carotid arteries are patent bilaterally, with no evidence of significant stenosis or aneurysm. There is no evidence of atherosclerotic plaque causing significant luminal narrowing. Vertebral arteries: The vertebral arteries are patent bilaterally, with no evidence of significant stenosis, aneurysm, or dissection. Thyroid gland: The thyroid gland is normal in size and appearance, with no focal lesions. Lymph nodes: There is no evidence of significant lymphadenopathy in the neck. Soft tissues: The soft tissues of the neck are unremarkable, with no evidence of masses or abnormal collections. Additional findings: Degenerative changes in the spine. IMPRESSION: 1. No evidence of significant stenosis or aneurysm. 2. A hypodense linear area is noted along the proximal right cervical ICA, likely an artifact; however, Doppler US is advised to rule out dissection. 3. Clinical correlation is advised. Electronically Signed by: Charlie Barnhart MD. (07/11/2025 18:48:10 EDT)
--- NOTE | 2025-07-11 19:08 | XRAY ---
CLINICAL HISTORY: L facial and left side numbness COMPARISON: Same-day head CT plain was reviewed. TECHNIQUE: CT angiography of the head was performed following the intravenous administration of iodinated contrast material. Contiguous axial images were obtained from the base of the skull to the vertex. Coronal and sagittal reformatted images were also reviewed. One of these 3D techniques was utilized: Maximum Intensity Pixel (MIP), 3D Reconstructed Images, Volume Rendered Images, Surface Shaded Rendering. One of the following dose reduction techniques was utilized for this exam. Automated exposure control, adjustment of the mA and/or kV according to patient size, and use of iterative reconstruction. FINDINGS: Intracranial Arteries: The intracranial arteries, including the anterior cerebral arteries, middle cerebral arteries, posterior cerebral arteries, basilar artery, and vertebral arteries, are all patent without evidence of significant stenosis, aneurysm, or dissection. There is no evidence of vascular malformations. Pala of [place]: The Pala of [place] is intact with no anatomical variations or abnormalities noted. All segments are well-visualized and normal in appearance. Venous System: The visualized portions of the venous system, including the dural venous sinuses, are patent with no evidence of thrombosis. Brain Parenchyma: The brain parenchyma shows no evidence of acute infarct, hemorrhage, or mass effect. The ventricles and sulci are normal in size and configuration. Bones: The bony structures of the skull are intact without evidence of fracture or destructive lesions. Soft Tissues: The visualized soft tissues of the head are unremarkable. Additional Findings: No other significant findings are noted. IMPRESSION: No evidence of significant vascular abnormalities, acute infarct, or hemorrhage. Advised clinical correlation. Electronically Signed by: Charlie Barnhart MD. (07/11/2025 19:06:31 EDT)
--- NOTE | 2025-07-11 20:26 | XRAY ---
Indication: Numbness. Two-dimensional sonogram and color Doppler imaging carotid arteries of the neck performed. Comparison: None Examination right carotid circulation demonstrates widely patent common carotid, carotid bulb, internal carotid, and external carotid arteries. PSV CCA is 52 cm/s. PSV ICA is 47 cm/s. ICA/CCA ratio 0.9. Normal antegrade vertebral artery flow. Examination left carotid circulation demonstrates widely patent common carotid, carotid bulb, internal carotid, and external carotid arteries. PSV CCA 64 cm/s. PSV ICA is 51 cm/s. ICA/CC ratio 0.8. Normal antegrade vertebral artery flow. Impression: Negative for aneurysm/dissection. Normal carotid arteries of the neck. Comment: Preliminary report was given.
--- NOTE | 2025-07-12 03:21 | PCM.HP ---
History of Present Illness - Chief Complaint Chief Complaint: obervation Date: 07/11/25 History of Present Illness: The patient is a 60-year-old female with a PMH of hypothyroidism, CVA, and peripheral neuropathy who presents to the emergency department with complaints of left-sided paresthesias. The patient reports that her symptoms started when she was driving at around 1 PM and experienced numbness of her entire left side. Reports that she also had the symptoms when she previously had a CVA in 2013 when she also had slurred speech. Notes that she fully recovered from that episode. Reports that her symptoms today lasted until about 6 PM and then resolved completely. Reports being at her baseline at the time of interview. Denied any additional complaints. Denied experiencing headaches, visual disturbances, speech impairments, or gait abnormalities. Denied experiencing chest discomfort, shortness of breath, fever, chills, cough. Also denies nausea, vomiting, abdominal pain, diarrhea. In the emergency department, a CT head revealed findings of a right basal ganglia old infarct with chronic deep white matter ischemia and age-related changes noted with no acute abnormalities. Head CTA was unremarkable with neck CTA showing findings possibly concerning for dissection with a follow-up Doppler ultrasound recommended, which was subsequently performed and was negative for aneurysm or dissection. Laboratory evaluation was reviewed with UA showing significant glucose and ketones, WBC count 7.6, hemoglobin 15.1, platelet count 241, sodium 139, potassium 3.2, total bilirubin 2.41 with BUN 16 and creatinine 0.72. The case was discussed with the ER provider in detail and chart was reviewed. Review of Systems: A complete and thorough review of system was performed and was negative except as stated in the HPI. Physical Examination: General: Well-nourished, in no acute distress. Obese HEENT: Head atruamatic normocephaic, PERRL, no scleral icterus, no oral lesions Cardiovascular: Regular rate and rhythm, S1S2 normal, no murmurs appreciated Respiratory: Clear to auscultation bilaterally, no wheezes, rales, rhonchi Abdomen: Soft, nontender, nondistended, normoactive bowel sounds, no guarding Musculoskeletal: Full range of motion. No obvious swelling or tenderness noted Neurological: Alert and oriented x 3. Strength 5/5 in all extremities grossly, no obvious focal deficits noted Psychiatric: Normal mood, affect, with cohesive thought process Assessment & Plan TIA with left-sided paresthesias - Order teleneurology consult - Initiate aspirin 81 mg p.o. daily and Lipitor 80 mg p.o. daily - Obtain echocardiogram - Brain MRI on Sunday morning - Neurochecks every 4 hours - Cardiac monitoring Elevated T bilirubini, unclear etiology - Obtain RUQ US Chronic conditions: Hypothyroidism, peripheral neuropathy - Resume patient's home Synthroid 125 mcg p.o. daily and gabapentin 600 mg p.o. 3 times daily DVT prophylaxis: Lovenox subcu CODE STATUS: Full code Medications & Allergies Home Medications: Home Medication List Venlafaxine HCl ER 75 mg [Effexor XR 75 MG] 75 mg PO .1600 06/02/15 [History Confirmed 07/11/25] Venlafaxine HCl [Venlafaxine HCl ER] 150 mg PO DAILY 06/02/15 [History Confirmed 07/11/25] Ergocalciferol (Vitamin D2) [Vitamin D2] 50,000 unit PO Q7D 03/16/20 [History Confirmed 07/11/25] Gabapentin 600 mg PO TID 03/16/20 [History Confirmed 07/11/25] Levothyroxine Sodium 50 Mcg [Synthroid 50 Mcg] 125 mcg PO DAILY 03/16/20 [History Confirmed 07/11/25] Semaglutide [Ozempic] 2 mg SQ UD 07/11/25 [History Confirmed 07/11/25] Allergies/Adverse Reactions: Allergies Allergy/AdvReac Type Severity Reaction Status Date / Time No Known Drug Allergies Allergy Verified 07/11/25 15:27 - Past Medical History Past Medical History: Yes Neurological History: Peripheral Neuropathy, TIA, Other ENT History: No Pertinent History Cardiac History: Hypertension Respiratory History: Other Endocrine Medical History: Hypothyroidism Musculoskelatal History: Fractures, Osteoarthritis GI Medical History: GERD History: No Pertinent History Pyscho-Social History: Depression Reproductive Disorders: No Pertinent History Comment: 2014 HAD SEIZURE/STROKE EPISODE WITH SLURRING OF WORDS AND WEAKNESS LEFT SIDE - NO RESIDUAL. HX OF COVID 05/2020. FX LEFT LOWER LEG WHEN LEG WAS PINNED BY FORK LIFT - TX'D WITH CAST IN 2013 - Past Surgical History Past Surgical History: Yes Neuro Surgical History: No Pertinent History Cardiac History: No Pertinent History Respiratory Surgery: No Pertinent History GI Surgical History: Cholecystectomy Genitourinary Surgical Hx: No Pertinent History Musculskeletal Surgical Hx: No Pertinent History Female Surgical History: Hysterectomy, Section, Lumpectomy Other Surgical History: TONSILECTOMY, tubal reversal - Social History Smoking Status: Never smoker Exposure to second hand smoke: No Alcohol: None Drug Use: none - Social Determinants of Health Will the patient participate in the screening: Yes Do you worry about a steady place to live?: No Do you have any problems with any of the following?: No known problems In the past 12 months,have you had to go without utilities?: No Have you or anyone in your house had to go without enough: No Transportation Issues: No Has anyone in your support network made you feel unsafe?: No Does the patient want assistance with any of the above?: No - Physical Exam Vital Signs: Vital Signs - 24 hr Temp Pulse Resp BP BP Pulse Ox 07/11/25 23:57 98.1 F 81 18 165/99 94 L 07/11/25 21:57 98.1 F 81 18 165/99 94 L 07/11/25 21:30 77 12 160/110 95 07/11/25 21:00 75 11 L 144/103 97 07/11/25 20:30 80 11 L 143/100 97 07/11/25 20:00 79 10 L 137/98 97 07/11/25 19:31 81 12 163/127 98 07/11/25 19:17 98 07/11/25 19:00 85 15 146/103 97 07/11/25 18:30 82 9 L 150/107 98 07/11/25 18:06 84 10 L 175/105 98 07/11/25 17:40 63 9 L 186/99 99 07/11/25 17:39 83 8 L 98 07/11/25 17:38 96 07/11/25 17:00 78 6 L 145/109 98 07/11/25 16:57 85 13 148/115 98 07/11/25 16:46 81 18 145/96 99 07/11/25 15:56 97 07/11/25 15:32 96.9 F 77 14 150/111 98 Results - Labs Lab/Micro Results: Lab Results-Last 24 Hours 07/11/25 07/11/25 07/11/25 Range/Units 16:05 16:05 16:05 WBC 7.6 (3.98-10.04) x10^3/uL RBC 5.02 (3.93-5.22) x10^6/uL Hgb 15.1 (11.2-15.7) g/dL Hct 43.9 (34.1-44.9) % MCV 87.5 (79.4-94.8) fL MCH 30.1 (25.6-32.2) pg MCHC 34.4 (32.2-35.5) g/dL RDW 13.7 (11.7-14.4) % Plt Count 241 (182-369) x10^3/uL MPV 10.9 (9.4-12.3) fL Gran % 74.4 H (34.0-71.1) % Immature Gran % (Auto) 0.1 (0.001-0.429) % Nucleat RBC Rel Count 0.0 (0.00-0.2) % Eos # (Auto) 0.04 (0.04-0.36) x10^3/uL Immature Gran # (Auto) 0.01 (0.001-0.031) x10^3u/L Absolute Lymphs (auto) 1.42 (1.18-3.74) x10^3/uL Absolute Monos (auto) 0.40 (0.24-0.86) x10^3/uL Absolute Nucleated RBC 0.00 (0.00-0.012) x10^3u/L Lymphocytes % 18.8 L (19.3-51.7) % Monocytes % 5.3 (4.7-12.5) % Eosinophils % 0.5 L (0.7-5.8) % Basophils % 0.9 (0.1-1.2) % Absolute Granulocytes 5.63 (1.56-6.13) x10^3/uL Basophils # 0.07 (0.01-0.08) x10^3/uL PT 12.0 (9.4-12.5) SECONDS INR 1.07 (0.8-3.0) APTT 26.9 (25.1-36.5) SECONDS Sodium (135-145) mmol/L Potassium (3.5-5.1) mmol/L Chloride (98-107) mmol/L Carbon Dioxide (22-30) mmol/L Anion Gap (5-15) MEQ/L BUN (7-17) mg/dL Creatinine (0.52-1.04) mg/dL Estimated GFR ML/MIN Glucose (74-106) mg/dL Calcium (8.4-10.2) mg/dL Total Bilirubin (0.2-1.3) mg/dL AST (14-36) U/L ALT (0-35) U/L Alkaline Phosphatase (38-126) U/L Serum Total Protein (6.3-8.2) g/dL Albumin (3.5-5.0) g/dL Free T4 (0.78-2.19) ng/dL TSH 3rd Generation 0.480 (0.470-4.680) mIU/L Urine Color (Yellow) Urine Appearance (Clear) Urine pH (4.6-8.0) Ur Specific Union (1.005-1.030) Urine Protein (Negative) Urine Glucose (UA) (Negative) mg/dL Urine Ketones (Negative) Urine Blood (Negative) Urine Nitrite (Negative) Urine Bilirubin (Negative) Urine Urobilinogen (0.2) mg/dL Ur Leukocyte Esterase (Negative) U Hyaline Cast (Auto) (0-2) /LPF Urine Microscopic RBC (0-5) /HPF Urine Microscopic WBC (0-5) /HPF Ur Epithelial Cells (None Seen) /HPF Urine Bacteria (None Seen) /HPF Urine Culture Reflexed (NO) 07/11/25 07/11/25 07/11/25 Range/Units 16:05 16:45 Unknown WBC (3.98-10.04) x10^3/uL RBC (3.93-5.22) x10^6/uL Hgb (11.2-15.7) g/dL Hct (34.1-44.9) % MCV (79.4-94.8) fL MCH (25.6-32.2) pg MCHC (32.2-35.5) g/dL RDW (11.7-14.4) % Plt Count (182-369) x10^3/uL MPV (9.4-12.3) fL Gran % (34.0-71.1) % Immature Gran % (Auto) (0.001-0.429) % Nucleat RBC Rel Count (0.00-0.2) % Eos # (Auto) (0.04-0.36) x10^3/uL Immature Gran # (Auto) (0.001-0.031) x10^3u/L Absolute Lymphs (auto) (1.18-3.74) x10^3/uL Absolute Monos (auto) (0.24-0.86) x10^3/uL Absolute Nucleated RBC (0.00-0.012) x10^3u/L Lymphocytes % (19.3-51.7) % Monocytes % (4.7-12.5) % Eosinophils % (0.7-5.8) % Basophils % (0.1-1.2) % Absolute Granulocytes (1.56-6.13) x10^3/uL Basophils # (0.01-0.08) x10^3/uL PT (9.4-12.5) SECONDS INR (0.8-3.0) APTT (25.1-36.5) SECONDS Sodium 139 (135-145) mmol/L Potassium 3.2 L (3.5-5.1) mmol/L Chloride 102 (98-107) mmol/L Carbon Dioxide 26 (22-30) mmol/L Anion Gap 15.2 H (5-15) MEQ/L BUN 16 (7-17) mg/dL Creatinine 0.72 (0.52-1.04) mg/dL Estimated GFR 95.1 ML/MIN Glucose 101 (74-106) mg/dL Calcium 9.4 (8.4-10.2) mg/dL Total Bilirubin 2.40 H (0.2-1.3) mg/dL AST 29 (14-36) U/L ALT 20 (0-35) U/L Alkaline Phosphatase 87 (38-126) U/L Serum Total Protein 7.5 (6.3-8.2) g/dL Albumin 4.5 (3.5-5.0) g/dL Free T4 1.41 (0.78-2.19) ng/dL TSH 3rd Generation (0.470-4.680) mIU/L Urine Color Dark Yellow A (Yellow) Urine Appearance Clear (Clear) Urine pH 6.5 (4.6-8.0) Ur Specific Union >=1.030 A (1.005-1.030) Urine Protein Trace A (Negative) Urine Glucose (UA) >=1000 A (Negative) mg/dL Urine Ketones >=160 A (Negative) Urine Blood Negative (Negative) Urine Nitrite Negative (Negative) Urine Bilirubin Negative (Negative) Urine Urobilinogen >=8.0 A (0.2) mg/dL Ur Leukocyte Esterase Negative (Negative) U Hyaline Cast (Auto) NONE SEEN (0-2) /LPF Urine Microscopic RBC 0-2 (0-5) /HPF Urine Microscopic WBC 6-10 A (0-5) /HPF Ur Epithelial Cells None Seen (None Seen) /HPF Urine Bacteria None Seen (None Seen) /HPF Urine Culture Reflexed NO (NO) - Radiology Impressions Radiology Exams & Impressions: Radiology Procedures Category Date Time Status CAROTID BILATERAL [US] Stat Exams 07/11/25 19:[address] ANGIOGRAPHY NECK [CT] Stat Exams 07/11/25 16:26 Completed CTA HEAD W AND/OR WO CONTRAST [CT] Stat Exams 07/11/25 16:25 Completed ECHO W/2D AND DOPPLER [US] Routine Exams 07/12/25 03:15 Ordered HEAD WITHOUT CONTRAST [CT] Stat Exams 07/11/25 15:25 Completed MRI BRAIN W & W/O CONTRAST [MRI] Routine Exams 07/12/25 03:15 Ordered US ABDOMEN LIMITED [ABDOMINAL-LIMITED] [US] Routine Exams 07/12/25 03:19 Ordered - Other Procedures and Tests Respiratory Therapy 07/12/25 03:15 EKG STAT Telemedicine Encounter - Telemedicine Encounter Telemedicine Encounter: "The entirety of this encounter was performed via Telemedicine" This visit was performed using real-time audio and video connection between my location and thepatients locationwith the assistance of a surrogateat the patients location. Written or verbal consent was obtained from the patient/guardian to perform this visit usingst[facility] technology. Any patient questions regarding the telemedicine interaction were answered.
[2025-07-12] MEDS ORDERED: ECOTRIN 81 MG PO ONE (04:05)
[2025-07-12] MEDS: BABY ASPIRIN 81 MG CHEW PO ONE (04:14)
[2025-07-12] MEDS: LIPITOR 40MG PO STA (04:14)
[2025-07-12 05:43] LABS: Calcium 8.8 mg/dL (8.4-10.2); Carbon Dioxide 28.0 mmol/L (22-30); Creatinine 1 0.76 mg/dL (0.52-1.04); EST GLOMERULAR FILTRATION RATE 89.1 ML/MIN; Glucose 111.0 mg/dL (74-106); SGOT/AST 25.0 U/L (14-36); SGPT/ALT 16.0 U/L (0-35); Total Protein 6.5 g/dL (6.3-8.2)
[2025-07-12 06:06] LABS: Potassium 2.6 mmol/L (3.5-5.1)
[2025-07-12] MEDS: POTASSIUM CHLORIDE 20 mEq IN WATER 100ML 20 MEQ/100 ML BAG IV SCH (06:19)
[2025-07-12] MEDS: Klor Con PO ONE ×2 (06:20→12:44)
[2025-07-12 08:08] LABS: Cholesterol 119.0 mg/dL (50-200); Hematocrit 41.1 % (34.1-44.9); Hemoglobin 13.8 g/dL (11.2-15.7); LDL, DIRECT 44.0 mg/dL (30-100); Mean Corpuscular Hemoglobin 31.0 pg (25.6-32.2); Mean Corpuscular Hgb Concent. 33.6 g/dL (32.2-35.5); Platelet Count 194 x10^3/uL (182-369); Red Blood Count 4.45 x10^6/uL (3.93-5.22); TRIGLYCERIDE 103.0 mg/dL (30-150); White Blood Count 6.2 x10^3/uL (3.98-10.04)
[2025-07-12] MEDS: ECOTRIN 81 MG PO SCH (09:26)
[2025-07-12] MEDS: NEURONTIN PO SCH (09:26)
[2025-07-12] MEDS: SYNTHROID 125 MCG PO SCH (09:26)
[2025-07-12] MEDS: ENOXAPARIN SODIUM SQ SCH (09:27)
[2025-07-12] MEDS: QUESTRAN Light 4 GM Packet PO SCH (09:58)
[2025-07-12] MEDS ORDERED: BABY ASPIRIN 81 MG CHEW PO SCH (10:00)
[2025-07-12] MEDS ORDERED: SYNTHROID 50 MCG PO SCH (10:00)
--- NOTE | 2025-07-12 10:11 | PCM.NOTE ---
Date and Time: 07/12/25 1005 Subjective Assessment: The patient is a 60-year-old female with a past medical history of hypothyroidism, cerebrovascular accident (CVA) in 2013, and peripheral neuropathy who presented to the emergency department on 07/11/25 with complaints of left-sided paresthesias. She reported that her symptoms began around 1 [address] and involved numbness of her entire left side. She noted experiencing similar symptoms during her prior CVA in 2013, which was also associated with slurred speech, though she made a full recovery at that time. On this occasion, her symptoms persisted until approximately 6 PM and then resolved completely. At the time admission, she reported feeling back to baseline and denied headaches, visual changes, speech disturbances, gait abnormalities, chest pain, shortness of breath, fever, chills, cough, nausea, vomiting, abdominal pain, or diarrhea. In the emergency department, CT head demonstrated a chronic right basal ganglia infarct with findings of chronic deep white matter ischemia and age-related changes, without evidence of acute abnormality. CTA of the head was unremarkable, while CTA of the neck suggested possible dissection; however, subsequent Doppler ultrasound was negative for aneurysm or dissection. Laboratory evaluation revealed WBC 7.6, hemoglobin 15.1, platelets 241, sodium 139, potassium 3.2, BUN 16, creatinine 0.72, and total bilirubin 2.41. Urinalysis was notable for significant glucose and ketones. On 07/12, the patient was resting comfortably in bed with complete resolution of symptoms and a non-concerning neurological exam. Aspirin and high-dose statin therapy were initiated. An echocardiogram and brain MRI are planned for the following morning. Neuro consult pending. Questran Light was started for chronic diarrhea related to prior cholecystectomy. Potassium was noted to be 2.6, and IV replacement is in progress with repeat labs scheduled two hours after infusion completion. The patient denies any new complaints at this time and is expected to be discharged after testing tomorrow. - Review of Systems Constitutional: No Fever, No Chills Eyes: No Symptoms Ears, Nose, & Throat: No Symptoms Respiratory: No Cough, No Short Of Breath Cardiac: No Chest Pain, No Edema, No Syncope Abdominal/Gastrointestinal: No Abdominal Pain, No Nausea, No Vomiting, No Diarrhea Genitourinary Symptoms: No Dysuria Musculoskeletal: No Back Pain, No Neck Pain Skin: No Rash Neurological: No Dizziness, No Focal Weakness, No Sensory Changes Psychological: No Symptoms Endocrine: No Symptoms Hematologic/Lymphatic: No Symptoms Immunological/Allergic: No Symptoms Objective Exam General Appearance: no apparent distress, alert, obese Neurologic Exam: alert, oriented x 3, cooperative, normal mood/affect, nml cerebellar function, sensation nml, No motor deficits Skin Exam: normal color, warm, dry Eye Exam: PERRL, EOMI, eyes nml inspection Ears, Nose, Throat Exam: normal ENT inspection, pharynx normal, moist mucous membranes Neck Exam: normal inspection, non-tender, supple, full range of motion Respiratory Exam: normal breath sounds, lungs clear, No respiratory distress Cardiovascular Exam: regular rate/rhythm, normal heart sounds Gastrointestinal/Abdomen Exam: soft, No tenderness, No mass Extremity Exam: normal inspection, normal range of motion Back Exam: normal inspection, normal range of motion, No CVA tenderness, No vertebral tenderness Pelvic Exam: deferred Rectal Exam: deferred Objective Data Vital Signs: Vital Signs - 24 hr Temp Pulse Resp BP BP Pulse Ox 07/12/25 07:23 97.6 F 74 16 145/92 97 07/12/25 04:00 97.9 F 70 18 142/95 94 L 07/12/25 03:18 76 07/11/25 23:57 98.1 F 81 18 165/99 94 L 07/11/25 21:57 98.1 F 81 18 165/99 94 L 07/11/25 21:30 77 12 160/110 95 07/11/25 21:00 75 11 L 144/103 97 07/11/25 20:30 80 11 L 143/100 97 07/11/25 20:00 79 10 L 137/98 97 07/11/25 19:31 81 12 163/127 98 07/11/25 19:17 98 07/11/25 19:00 85 15 146/103 97 07/11/25 18:30 82 9 L 150/107 98 07/11/25 18:06 84 10 L 175/105 98 07/11/25 17:40 63 9 L 186/99 99 07/11/25 17:39 83 8 L 98 07/11/25 17:38 96 07/11/25 17:00 78 6 L 145/109 98 07/11/25 16:57 85 13 148/115 98 07/11/25 16:46 81 18 145/96 99 07/11/25 15:56 97 07/11/25 15:32 96.9 F 77 14 150/111 98 Pain Assessment - Last Documented Pain Intensity 0 Intake and Output: Intake & Output 07/09/25 07/10/25 07/11/25 07/12/25 11:59 11:59 11:59 11:59 Intake Total 600 Balance 600 Weight 74 kg Lab Results: Lab Results-Last 24 Hours 07/11/25 07/11/25 07/11/25 Range/Units 16:05 16:05 16:05 WBC 7.6 (3.98-10.04) x10^3/uL RBC 5.02 (3.93-5.22) x10^6/uL Hgb 15.1 (11.2-15.7) g/dL Hct 43.9 (34.1-44.9) % MCV 87.5 (79.4-94.8) fL MCH 30.1 (25.6-32.2) pg MCHC 34.4 (32.2-35.5) g/dL RDW 13.7 (11.7-14.4) % Plt Count 241 (182-369) x10^3/uL MPV 10.9 (9.4-12.3) fL Gran % 74.4 H (34.0-71.1) % Immature Gran % (Auto) 0.1 (0.001-0.429) % Nucleat RBC Rel Count 0.0 (0.00-0.2) % Eos # (Auto) 0.04 (0.04-0.36) x10^3/uL Immature Gran # (Auto) 0.01 (0.001-0.031) x10^3u/L Absolute Lymphs (auto) 1.42 (1.18-3.74) x10^3/uL Absolute Monos (auto) 0.40 (0.24-0.86) x10^3/uL Absolute Nucleated RBC 0.00 (0.00-0.012) x10^3u/L Lymphocytes % 18.8 L (19.3-51.7) % Monocytes % 5.3 (4.7-12.5) % Eosinophils % 0.5 L (0.7-5.8) % Basophils % 0.9 (0.1-1.2) % Absolute Granulocytes 5.63 (1.56-6.13) x10^3/uL Basophils # 0.07 (0.01-0.08) x10^3/uL PT 12.0 (9.4-12.5) SECONDS INR 1.07 (0.8-3.0) APTT 26.9 (25.1-36.5) SECONDS Sodium (135-145) mmol/L Potassium (3.5-5.1) mmol/L Chloride (98-107) mmol/L Carbon Dioxide (22-30) mmol/L Anion Gap (5-15) MEQ/L BUN (7-17) mg/dL Creatinine (0.52-1.04) mg/dL Estimated GFR ML/MIN Glucose (74-106) mg/dL Hemoglobin A1c (4.5-6.0) % Calcium (8.4-10.2) mg/dL Magnesium (1.6-2.3) mg/dL Total Bilirubin (0.2-1.3) mg/dL AST (14-36) U/L ALT (0-35) U/L Alkaline Phosphatase (38-126) U/L Serum Total Protein (6.3-8.2) g/dL Albumin (3.5-5.0) g/dL Triglycerides (30-150) mg/dL Cholesterol (50-200) mg/dL LDL Cholesterol (30-100) mg/dL HDL Cholesterol (40-60) mg/dL Heart Disease Risk Ratio Free T4 (0.78-2.19) ng/dL TSH 3rd Generation 0.480 (0.470-4.680) mIU/L Urine Color (Yellow) Urine Appearance (Clear) Urine pH (4.6-8.0) Ur Specific Wayne (1.005-1.030) Urine Protein (Negative) Urine Glucose (UA) (Negative) mg/dL Urine Ketones (Negative) Urine Blood (Negative) Urine Nitrite (Negative) Urine Bilirubin (Negative) Urine Urobilinogen (0.2) mg/dL Ur Leukocyte Esterase (Negative) U Hyaline Cast (Auto) (0-2) /LPF Urine Microscopic RBC (0-5) /HPF Urine Microscopic WBC (0-5) /HPF Ur Epithelial Cells (None Seen) /HPF Urine Bacteria (None Seen) /HPF Urine Culture Reflexed (NO) 07/11/25 07/11/25 07/11/25 Range/Units 16:05 16:45 Unknown WBC (3.98-10.04) x10^3/uL RBC (3.93-5.22) x10^6/uL Hgb (11.2-15.7) g/dL Hct (34.1-44.9) % MCV (79.4-94.8) fL MCH (25.6-32.2) pg MCHC (32.2-35.5) g/dL RDW (11.7-14.4) % Plt Count (182-369) x10^3/uL MPV (9.4-12.3) fL Gran % (34.0-71.1) % Immature Gran % (Auto) (0.001-0.429) % Nucleat RBC Rel Count (0.00-0.2) % Eos # (Auto) (0.04-0.36) x10^3/uL Immature Gran # (Auto) (0.001-0.031) x10^3u/L Absolute Lymphs (auto) (1.18-3.74) x10^3/uL Absolute Monos (auto) (0.24-0.86) x10^3/uL Absolute Nucleated RBC (0.00-0.012) x10^3u/L Lymphocytes % (19.3-51.7) % Monocytes % (4.7-12.5) % Eosinophils % (0.7-5.8) % Basophils % (0.1-1.2) % Absolute Granulocytes (1.56-6.13) x10^3/uL Basophils # (0.01-0.08) x10^3/uL PT (9.4-12.5) SECONDS INR (0.8-3.0) APTT (25.1-36.5) SECONDS Sodium 139 (135-145) mmol/L Potassium 3.2 L (3.5-5.1) mmol/L Chloride 102 (98-107) mmol/L Carbon Dioxide 26 (22-30) mmol/L Anion Gap 15.2 H (5-15) MEQ/L BUN 16 (7-17) mg/dL Creatinine 0.72 (0.52-1.04) mg/dL Estimated GFR 95.1 ML/MIN Glucose 101 (74-106) mg/dL Hemoglobin A1c (4.5-6.0) % Calcium 9.4 (8.4-10.2) mg/dL Magnesium (1.6-2.3) mg/dL Total Bilirubin 2.40 H (0.2-1.3) mg/dL AST 29 (14-36) U/L ALT 20 (0-35) U/L Alkaline Phosphatase 87 (38-126) U/L Serum Total Protein 7.5 (6.3-8.2) g/dL Albumin 4.5 (3.5-5.0) g/dL Triglycerides (30-150) mg/dL Cholesterol (50-200) mg/dL LDL Cholesterol (30-100) mg/dL HDL Cholesterol (40-60) mg/dL Heart Disease Risk Ratio Free T4 1.41 (0.78-2.19) ng/dL TSH 3rd Generation (0.470-4.680) mIU/L Urine Color Dark Yellow A (Yellow) Urine Appearance Clear (Clear) Urine pH 6.5 (4.6-8.0) Ur Specific Wayne >=1.030 A (1.005-1.030) Urine Protein Trace A (Negative) Urine Glucose (UA) >=1000 A (Negative) mg/dL Urine Ketones >=160 A (Negative) Urine Blood Negative (Negative) Urine Nitrite Negative (Negative) Urine Bilirubin Negative (Negative) Urine Urobilinogen >=8.0 A (0.2) mg/dL Ur Leukocyte Esterase Negative (Negative) U Hyaline Cast (Auto) NONE SEEN (0-2) /LPF Urine Microscopic RBC 0-2 (0-5) /HPF Urine Microscopic WBC 6-10 A (0-5) /HPF Ur Epithelial Cells None Seen (None Seen) /HPF Urine Bacteria None Seen (None Seen) /HPF Urine Culture Reflexed NO (NO) 07/12/25 07/12/25 07/12/25 Range/Units 05:14 05:14 05:14 WBC 6.2 (3.98-10.04) x10^3/uL RBC 4.45 (3.93-5.22) x10^6/uL Hgb 13.8 (11.2-15.7) g/dL Hct 41.1 (34.1-44.9) % MCV 92.4 (79.4-94.8) fL MCH 31.0 (25.6-32.2) pg MCHC 33.6 (32.2-35.5) g/dL RDW 14.2 (11.7-14.4) % Plt Count 194 (182-369) x10^3/uL MPV 11.3 (9.4-12.3) fL Gran % (34.0-71.1) % Immature Gran % (Auto) (0.001-0.429) % Nucleat RBC Rel Count (0.00-0.2) % Eos # (Auto) (0.04-0.36) x10^3/uL Immature Gran # (Auto) (0.001-0.031) x10^3u/L Absolute Lymphs (auto) (1.18-3.74) x10^3/uL Absolute Monos (auto) (0.24-0.86) x10^3/uL Absolute Nucleated RBC (0.00-0.012) x10^3u/L Lymphocytes % (19.3-51.7) % Monocytes % (4.7-12.5) % Eosinophils % (0.7-5.8) % Basophils % (0.1-1.2) % Absolute Granulocytes (1.56-6.13) x10^3/uL Basophils # (0.01-0.08) x10^3/uL PT (9.4-12.5) SECONDS INR (0.8-3.0) APTT (25.1-36.5) SECONDS Sodium 137 (135-145) mmol/L Potassium 2.6 L* (3.5-5.1) mmol/L Chloride 101 (98-107) mmol/L Carbon Dioxide 28 (22-30) mmol/L Anion Gap 10.7 (5-15) MEQ/L BUN 16 (7-17) mg/dL Creatinine 0.76 (0.52-1.04) mg/dL Estimated GFR 89.1 ML/MIN Glucose 111 H (74-106) mg/dL Hemoglobin A1c (4.5-6.0) % Calcium 8.8 (8.4-10.2) mg/dL Magnesium (1.6-2.3) mg/dL Total Bilirubin 1.80 H (0.2-1.3) mg/dL AST 25 (14-36) U/L ALT 16 (0-35) U/L Alkaline Phosphatase 69 (38-126) U/L Serum Total Protein 6.5 (6.3-8.2) g/dL Albumin 3.9 (3.5-5.0) g/dL Triglycerides 103 (30-150) mg/dL Cholesterol 119 (50-200) mg/dL LDL Cholesterol 44 (30-100) mg/dL HDL Cholesterol 38 L (40-60) mg/dL Heart Disease Risk Ratio 3.0 Free T4 (0.78-2.19) ng/dL TSH 3rd Generation (0.470-4.680) mIU/L Urine Color (Yellow) Urine Appearance (Clear) Urine pH (4.6-8.0) Ur Specific Wayne (1.005-1.030) Urine Protein (Negative) Urine Glucose (UA) (Negative) mg/dL Urine Ketones (Negative) Urine Blood (Negative) Urine Nitrite (Negative) Urine Bilirubin (Negative) Urine Urobilinogen (0.2) mg/dL Ur Leukocyte Esterase (Negative) U Hyaline Cast (Auto) (0-2) /LPF Urine Microscopic RBC (0-5) /HPF Urine Microscopic WBC (0-5) /HPF Ur Epithelial Cells (None Seen) /HPF Urine Bacteria (None Seen) /HPF Urine Culture Reflexed (NO) 07/12/25 07/12/25 Range/Units 05:14 06:07 WBC (3.98-10.04) x10^3/uL RBC (3.93-5.22) x10^6/uL Hgb (11.2-15.7) g/dL Hct (34.1-44.9) % MCV (79.4-94.8) fL MCH (25.6-32.2) pg MCHC (32.2-35.5) g/dL RDW (11.7-14.4) % Plt Count (182-369) x10^3/uL MPV (9.4-12.3) fL Gran % (34.0-71.1) % Immature Gran % (Auto) (0.001-0.429) % Nucleat RBC Rel Count (0.00-0.2) % Eos # (Auto) (0.04-0.36) x10^3/uL Immature Gran # (Auto) (0.001-0.031) x10^3u/L Absolute Lymphs (auto) (1.18-3.74) x10^3/uL Absolute Monos (auto) (0.24-0.86) x10^3/uL Absolute Nucleated RBC (0.00-0.012) x10^3u/L Lymphocytes % (19.3-51.7) % Monocytes % (4.7-12.5) % Eosinophils % (0.7-5.8) % Basophils % (0.1-1.2) % Absolute Granulocytes (1.56-6.13) x10^3/uL Basophils # (0.01-0.08) x10^3/uL PT (9.4-12.5) SECONDS INR (0.8-3.0) APTT (25.1-36.5) SECONDS Sodium (135-145) mmol/L Potassium (3.5-5.1) mmol/L Chloride (98-107) mmol/L Carbon Dioxide (22-30) mmol/L Anion Gap (5-15) MEQ/L BUN (7-17) mg/dL Creatinine (0.52-1.04) mg/dL Estimated GFR ML/MIN Glucose (74-106) mg/dL Hemoglobin A1c 4.53 (4.5-6.0) % Calcium (8.4-10.2) mg/dL Magnesium 1.9 (1.6-2.3) mg/dL Total Bilirubin (0.2-1.3) mg/dL AST (14-36) U/L ALT (0-35) U/L Alkaline Phosphatase (38-126) U/L Serum Total Protein (6.3-8.2) g/dL Albumin (3.5-5.0) g/dL Triglycerides (30-150) mg/dL Cholesterol (50-200) mg/dL LDL Cholesterol (30-100) mg/dL HDL Cholesterol (40-60) mg/dL Heart Disease Risk Ratio Free T4 (0.78-2.19) ng/dL TSH 3rd Generation (0.470-4.680) mIU/L Urine Color (Yellow) Urine Appearance (Clear) Urine pH (4.6-8.0) Ur Specific Wayne (1.005-1.030) Urine Protein (Negative) Urine Glucose (UA) (Negative) mg/dL Urine Ketones (Negative) Urine Blood (Negative) Urine Nitrite (Negative) Urine Bilirubin (Negative) Urine Urobilinogen (0.2) mg/dL Ur Leukocyte Esterase (Negative) U Hyaline Cast (Auto) (0-2) /LPF Urine Microscopic RBC (0-5) /HPF Urine Microscopic WBC (0-5) /HPF Ur Epithelial Cells (None Seen) /HPF Urine Bacteria (None Seen) /HPF Urine Culture Reflexed (NO) Radiology Exams: Radiology Procedures Category Date Time Status CAROTID BILATERAL [US] Stat Exams 07/11/25 19:[address] ANGIOGRAPHY NECK [CT] Stat Exams 07/11/25 16:26 Completed CTA HEAD W AND/OR WO CONTRAST [CT] Stat Exams 07/11/25 16:25 Completed ECHO W/2D AND DOPPLER [US] Routine Exams 07/12/25 03:15 Ordered HEAD WITHOUT CONTRAST [CT] Stat Exams 07/11/25 15:25 Completed MRI BRAIN W & W/O CONTRAST [MRI] Routine Exams 07/12/25 03:15 Ordered US ABDOMEN LIMITED [ABDOMINAL-LIMITED] [US] Routine Exams 07/12/25 03:19 Ordered Medications: Medications Generic Name Dose Route Start Last Admin Trade Name Freq PRN Reason Stop Dose Admin Aspirin 81 mg 07/12/25 10:00 07/12/25 09:26 Aspirin 81 Mg Tablet.Ec PO 08/11/25 09:59 81 mg QAM LYNNE Administration Atorvastatin Calcium 80 mg 07/12/25 22:00 Atorvastatin Calcium 40 Mg Tablet PO 08/11/25 21:59 QHS LYNNE Cholestyramine Resin 4 gm 07/12/25 10:00 07/12/25 09:58 Cholestyramine Light 4 Gm Packet PO 08/11/25 09:59 4 gm DAILY LYNNE Administration Enoxaparin Sodium 40 mg 07/12/25 10:00 07/12/25 09:27 Enoxaparin Sodium 40 Mg/0.4 Ml Syringe SQ 08/11/25 09:59 40 mg DAILY LYNNE Administration Gabapentin 600 mg 07/12/25 10:00 07/12/25 09:26 Gabapentin 300 Mg Capsule PO 08/11/25 09:59 600 mg TID LYNNE Administration Potassium Chloride 20 meq in 100 mls @ 50 mls/hr 07/12/25 06:15 07/12/25 08:30 Potassium Chloride 20 Meq In Water 100ml IV 07/12/25 10:14 50 mls/hr Q2H LYNNE Administration Sodium Chloride 1,000 mls @ 50 mls/hr 07/12/25 07:30 07/12/25 07:20 Sodium Chloride 0.9% 1000 Ml IV 08/11/25 07:29 50 mls/hr .Q20H LYNNE Administration Levothyroxine Sodium 125 mcg 07/12/25 10:00 07/12/25 09:26 Levothyroxine Sodium 125 Mcg Tablet PO 08/11/25 09:59 125 mcg DAILY LYNNE Administration Discontinued Medications Generic Name Dose Route Start Last Admin Trade Name Freq PRN Reason Stop Dose Admin Aspirin 81 mg 07/12/25 10:00 Aspirin 81 Mg Tab.Chew PO 08/11/25 09:59 QAM LYNNE Aspirin 81 mg 07/12/25 03:19 07/12/25 04:14 Aspirin 81 Mg Tab.Chew PO 07/12/25 03:20 81 mg STAT ONE Administration Aspirin Confirm 07/12/25 04:05 Aspirin 81 Mg Tablet.Ec Administered 07/12/25 04:06 Dose 81 mg PO .STK-MED ONE Atorvastatin Calcium 80 mg 07/12/25 03:15 07/12/25 04:14 Atorvastatin Calcium 40 Mg Tablet PO 07/12/25 03:16 80 mg STAT STA Administration Potassium Chloride 40 meq 07/12/25 06:12 07/12/25 06:20 Potassium Chloride Tab 10 Meq Tab PO 07/12/25 06:13 40 meq STAT ONE Administration Assessment/Plan (1) TIA (transient ischemic attack) Current Visit: Yes Status: Acute Assessment & Plan: - Teleneurology consult - Initiate Aspirin 81 mg p.o. daily and Lipitor 80 mg p.o. daily - Obtain echocardiogram- Sunday - Brain MRI on Sunday morning - Neurochecks every 4 hours - Cardiac monitoring- tele - PT/OT/ST - Lipid panel- reviewed HDL 38 - A1C 4.53 - Carotid US: : Negative for aneurysm/dissection. Normal carotid arteries of the neck. - CT angiography: 1. No evidence of significant stenosis or aneurysm. 2. A hypodense linear area is noted along the proximal right cervical ICA, likely an artifact; however, Doppler US is advised to rule out dissection. 3. Clinical correlation is advised. - Head CTA: No evidence of significant vascular abnormalities, acute infarct, or hemorrhage. Advised clinical correlation. - Head CT: 1. No CT evidence of acute infarction or recent hemorrhage. If clinically suspected recent stroke, the MRI stroke protocol is recommended. 2. A right basal ganglia hypodense area of CSF density is consistent with an old infarction. 3. Chronic deep white matter ischemia. 4. Cortical age-related involutional brain changes. Code(s): G45.9 - TRANSIENT CEREBRAL ISCHEMIC ATTACK, UNSPECIFIED (2) Low HDL (under 40) Current Visit: Yes Status: Acute Assessment & Plan: - HDL 38 - High dose statin for CVA - Diet and exercise education provided to increase Code(s): E78.6 - LIPOPROTEIN DEFICIENCY (3) Hypokalemia Current Visit: No Status: Acute Assessment & Plan: - K+ 2.6- replaced IV- trend - Tele - 2;2 chronic diarrhea Code(s): E87.6 - HYPOKALEMIA (4) Bilirubinemia Current Visit: Yes Status: Acute Assessment & Plan: - Bili 1.80- elevated but improved since admission - If continued elevation consider US Code(s): E80.6 - OTHER DISORDERS OF BILIRUBIN METABOLISM (5) Obesity (BMI 30.0-34.9) Current Visit: Yes Status: Chronic Assessment & Plan: - Hold Ozempic - Advised diet and exercise control Code(s): E66.811 - OBESITY, CLASS 1 (6) Peripheral neuropathy Current Visit: Yes Status: Chronic Assessment & Plan: - Continue gabapentin Code(s): G62.9 - POLYNEUROPATHY, UNSPECIFIED (7) Depression Current Visit: Yes Status: Chronic Assessment & Plan: - Continue effexor Code(s): F32.A - DEPRESSION, UNSPECIFIED (8) Chronic diarrhea Current Visit: Yes Status: Chronic Assessment & Plan: - 2:2 cholecystectomy hx - Started Questran light- will need RX at D/C to continue OP if helpful. Code(s): K52.9 - NONINFECTIVE GASTROENTERITIS AND COLITIS, UNSPECIFIED (9) Hypothyroidism Current Visit: Yes Status: Chronic Assessment & Plan: - Continue Synthroid - TSH WNL VTE: Lovenox Next of KIN: Maria Del Carmen Bhatia [phone] D/C plan: tomorrow Code status: Full Plan of care time > 38 minutes Code(s): E03.9 - HYPOTHYROIDISM, UNSPECIFIED
[2025-07-12] MEDS ORDERED: HUMALOG SQ PRN (10:55)
[2025-07-12] MEDS: VITAMIN D2 PO SCH (11:09)
[2025-07-12] MEDS ORDERED: MEDICATION INTERVENTION MC SCH (11:15)
[2025-07-12] MEDS: Effexor XR 75 MG PO SCH (11:37)
[2025-07-12] MEDS ORDERED: Effexor XR 75 MG PO SCH (12:00)
[2025-07-12] MEDS: NORVASC 5 MG PO SCH (12:44)
[2025-07-12] MEDS ORDERED: NON-FORMULARY ITEM (Prazosin Hcl [Prazosin Hcl] 2 MG Capsule) PO SCH (22:00)
[2025-07-12] MEDS ORDERED: LIPITOR 40MG ONE (22:28)
[2025-07-12] MEDS: LIPITOR 40MG PO SCH (22:31)
[2025-07-12] MEDS: Mirapex 0.5 MG Tablet PO SCH (22:32)
[2025-07-13 04:04] VITALS: RESP 16
[2025-07-13 05:01] LABS: Hematocrit 41.2 % (34.1-44.9); Hemoglobin 14.0 g/dL (11.2-15.7); Mean Corpuscular Hemoglobin 30.6 pg (25.6-32.2); Mean Corpuscular Hgb Concent. 34.0 g/dL (32.2-35.5); Platelet Count 239 x10^3/uL (182-369); Red Blood Count 4.57 x10^6/uL (3.93-5.22); White Blood Count 6.9 x10^3/uL (3.98-10.04)
[2025-07-13 05:09] LABS: Calcium 9.0 mg/dL (8.4-10.2); Carbon Dioxide 28.0 mmol/L (22-30); Creatinine 1 0.63 mg/dL (0.52-1.04); EST GLOMERULAR FILTRATION RATE 100.9 ML/MIN; Glucose 97.0 mg/dL (74-106); Potassium 3.2 mmol/L (3.5-5.1); SGOT/AST 29.0 U/L (14-36); SGPT/ALT 15.0 U/L (0-35); Total Protein 6.5 g/dL (6.3-8.2)
--- NOTE | 2025-07-13 05:19 | PCM.NOTE ---
Date and Time: 07/13/25 0514 Subjective Assessment: Ms. Abraham is a 60-year-old female with past medical history significant for hypothyroidism, prior CVA (2013), and peripheral neuropathy who presented to the ED with acute-onset left-sided paresthesias beginning at1 PM while driving. She described numbness of the entire left side, similar to her prior stroke episode, though without associated slurred speech this time. Symptoms lasted until approximately 6 PM and resolved completely by the time of evaluation. She denied headache, visual disturbance, dysarthria, gait abnormality, chest pain, dyspnea, fever, chills, cough, abdominal complaints, or GI upset. In the ED, CT head revealed a chronic right basal ganglia infarct with chronic deep white matter ischemia and age-related changes but no acute abnormality. CTA of the head was unremarkable, while CTA neck raised suspicion for possible dissection, prompting follow-up carotid Doppler ultrasound which was negative for dissection or aneurysm. Laboratory evaluation showed WBC 7.6, hemoglobin 15.1, platelets 241, sodium 139, potassium 3.2, BUN 16, creatinine 0.72, total bilirubin 2.41, and urinalysis notable for significant glucose and ketones. Management was initiated with aspirin 81 mg PO daily and atorvastatin 80 mg PO daily for secondary stroke prevention, with teleneurology consulted. MRI of the brain was scheduled for 07/13/25 to evaluate for subtle acute ischemia not seen on CT, and an echocardiogram was ordered to rule out a cardioembolic source. Neuro checks were ordered every 4 hours and the patient was placed on continuous cardiac monitoring to detect arrhythmias. Hypokalemia with serum potassium 3.2 was addressed with electrolyte repletion and repeat BMP was planned after correction, with magnesium to be monitored as well. Glucosuria and ketonuria on urinalysis raised concern for possible undiagnosed or uncontrolled diabetes, so serum glucose and HbA1c were recommended for further evaluation. A1c was 4.53. The isolated elevation in total bilirubin to 2.41 prompted an order for RUQ ultrasound to assess for hepatobiliary disease, with daily trending of LFTs. Tb rj now down to 1.80. 07/13/25: Met with patient bedside. Reports left sided numbness/tingling has resolved. Plan for MRI and echo today with PT evaluation. Pending recommendations possible discharge today. - Review of Systems Constitutional: No Symptoms Eyes: No Symptoms Ears, Nose, & Throat: No Symptoms Respiratory: No Symptoms Cardiac: No Symptoms Abdominal/Gastrointestinal: No Symptoms Genitourinary Symptoms: No Symptoms Musculoskeletal: No Symptoms Skin: No Symptoms Neurological: No Symptoms Psychological: No Symptoms Endocrine: No Symptoms Hematologic/Lymphatic: No Symptoms Immunological/Allergic: No Symptoms Objective Exam General Appearance: no apparent distress Neurologic Exam: alert, oriented x 3, cooperative Skin Exam: normal color Eye Exam: PERRL Ears, Nose, Throat Exam: normal ENT inspection Neck Exam: normal inspection Lymphatic Exam: adenopathy Respiratory Exam: normal breath sounds, lungs clear Cardiovascular Exam: regular rate/rhythm, normal heart sounds Gastrointestinal/Abdomen Exam: soft, normal bowel sounds Extremity Exam: normal inspection Back Exam: normal inspection Pelvic Exam: deferred Rectal Exam: deferred Objective Data Vital Signs: Vital Signs - 24 hr Temp Pulse Resp BP Pulse Ox 07/13/25 04:00 97.9 F 73 16 146/95 95 07/13/25 00:00 97.5 F 75 15 131/83 95 07/12/25 20:00 97.0 F 77 16 138/85 93 L 07/12/25 16:00 98.6 F 73 16 162/92 94 L 07/12/25 11:56 97.7 F 74 16 153/102 98 07/12/25 07:23 97.6 F 74 16 145/92 97 Pain Assessment - Last Documented Pain Intensity 0 Intake and Output: Intake & Output 07/10/25 07/11/25 07/12/25 07/13/25 11:59 11:59 11:59 11:59 Intake Total 600 1093 Balance 600 1093 Weight 74 kg Lab Results: Lab Results-Last 24 Hours 07/12/25 07/12/25 07/12/25 Range/Units 05:14 05:14 05:14 WBC 6.2 (3.98-10.04) x10^3/uL RBC 4.45 (3.93-5.22) x10^6/uL Hgb 13.8 (11.2-15.7) g/dL Hct 41.1 (34.1-44.9) % MCV 92.4 (79.4-94.8) fL MCH 31.0 (25.6-32.2) pg MCHC 33.6 (32.2-35.5) g/dL RDW 14.2 (11.7-14.4) % Plt Count 194 (182-369) x10^3/uL MPV 11.3 (9.4-12.3) fL Sodium 137 (135-145) mmol/L Potassium 2.6 L* (3.5-5.1) mmol/L Chloride 101 (98-107) mmol/L Carbon Dioxide 28 (22-30) mmol/L Anion Gap 10.7 (5-15) MEQ/L BUN 16 (7-17) mg/dL Creatinine 0.76 (0.52-1.04) mg/dL Estimated GFR 89.1 ML/MIN Glucose 111 H (74-106) mg/dL POC Glucometer (74 to 106) mg/dL Hemoglobin A1c (4.5-6.0) % Calcium 8.8 (8.4-10.2) mg/dL Magnesium (1.6-2.3) mg/dL Total Bilirubin 1.80 H (0.2-1.3) mg/dL AST 25 (14-36) U/L ALT 16 (0-35) U/L Alkaline Phosphatase 69 (38-126) U/L Serum Total Protein 6.5 (6.3-8.2) g/dL Albumin 3.9 (3.5-5.0) g/dL Triglycerides 103 (30-150) mg/dL Cholesterol 119 (50-200) mg/dL LDL Cholesterol 44 (30-100) mg/dL HDL Cholesterol 38 L (40-60) mg/dL Heart Disease Risk Ratio 3.0 07/12/25 07/12/25 07/12/25 Range/Units 05:14 06:07 11:39 WBC (3.98-10.04) x10^3/uL RBC (3.93-5.22) x10^6/uL Hgb (11.2-15.7) g/dL Hct (34.1-44.9) % MCV (79.4-94.8) fL MCH (25.6-32.2) pg MCHC (32.2-35.5) g/dL RDW (11.7-14.4) % Plt Count (182-369) x10^3/uL MPV (9.4-12.3) fL Sodium (135-145) mmol/L Potassium (3.5-5.1) mmol/L Chloride (98-107) mmol/L Carbon Dioxide (22-30) mmol/L Anion Gap (5-15) MEQ/L BUN (7-17) mg/dL Creatinine (0.52-1.04) mg/dL Estimated GFR ML/MIN Glucose (74-106) mg/dL POC Glucometer 89 (74 to 106) mg/dL Hemoglobin A1c 4.53 (4.5-6.0) % Calcium (8.4-10.2) mg/dL Magnesium 1.9 (1.6-2.3) mg/dL Total Bilirubin (0.2-1.3) mg/dL AST (14-36) U/L ALT (0-35) U/L Alkaline Phosphatase (38-126) U/L Serum Total Protein (6.3-8.2) g/dL Albumin (3.5-5.0) g/dL Triglycerides (30-150) mg/dL Cholesterol (50-200) mg/dL LDL Cholesterol (30-100) mg/dL HDL Cholesterol (40-60) mg/dL Heart Disease Risk Ratio 07/12/25 07/12/25 07/12/25 Range/Units 11:50 15:53 20:58 WBC (3.98-10.04) x10^3/uL RBC (3.93-5.22) x10^6/uL Hgb (11.2-15.7) g/dL Hct (34.1-44.9) % MCV (79.4-94.8) fL MCH (25.6-32.2) pg MCHC (32.2-35.5) g/dL RDW (11.7-14.4) % Plt Count (182-369) x10^3/uL MPV (9.4-12.3) fL Sodium (135-145) mmol/L Potassium 3.7 D (3.5-5.1) mmol/L Chloride (98-107) mmol/L Carbon Dioxide (22-30) mmol/L Anion Gap (5-15) MEQ/L BUN (7-17) mg/dL Creatinine (0.52-1.04) mg/dL Estimated GFR ML/MIN Glucose (74-106) mg/dL POC Glucometer 109 H 86 (74 to 106) mg/dL Hemoglobin A1c (4.5-6.0) % Calcium (8.4-10.2) mg/dL Magnesium (1.6-2.3) mg/dL Total Bilirubin (0.2-1.3) mg/dL AST (14-36) U/L ALT (0-35) U/L Alkaline Phosphatase (38-126) U/L Serum Total Protein (6.3-8.2) g/dL Albumin (3.5-5.0) g/dL Triglycerides (30-150) mg/dL Cholesterol (50-200) mg/dL LDL Cholesterol (30-100) mg/dL HDL Cholesterol (40-60) mg/dL Heart Disease Risk Ratio 07/13/25 Range/Units 04:14 WBC 6.9 (3.98-10.04) x10^3/uL RBC 4.57 (3.93-5.22) x10^6/uL Hgb 14.0 (11.2-15.7) g/dL Hct 41.2 (34.1-44.9) % MCV 90.2 (79.4-94.8) fL MCH 30.6 (25.6-32.2) pg MCHC 34.0 (32.2-35.5) g/dL RDW 14.3 (11.7-14.4) % Plt Count 239 (182-369) x10^3/uL MPV 11.5 (9.4-12.3) fL Sodium (135-145) mmol/L Potassium (3.5-5.1) mmol/L Chloride (98-107) mmol/L Carbon Dioxide (22-30) mmol/L Anion Gap (5-15) MEQ/L BUN (7-17) mg/dL Creatinine (0.52-1.04) mg/dL Estimated GFR ML/MIN Glucose (74-106) mg/dL POC Glucometer (74 to 106) mg/dL Hemoglobin A1c (4.5-6.0) % Calcium (8.4-10.2) mg/dL Magnesium (1.6-2.3) mg/dL Total Bilirubin (0.2-1.3) mg/dL AST (14-36) U/L ALT (0-35) U/L Alkaline Phosphatase (38-126) U/L Serum Total Protein (6.3-8.2) g/dL Albumin (3.5-5.0) g/dL Triglycerides (30-150) mg/dL Cholesterol (50-200) mg/dL LDL Cholesterol (30-100) mg/dL HDL Cholesterol (40-60) mg/dL Heart Disease Risk Ratio Radiology Exams: Radiology Procedures Category Date Time Status CAROTID BILATERAL [US] Stat Exams 07/11/25 19:[address] ANGIOGRAPHY NECK [CT] Stat Exams 07/11/25 16:26 Completed CTA HEAD W AND/OR WO CONTRAST [CT] Stat Exams 07/11/25 16:25 Completed ECHO W/2D AND DOPPLER [US] Routine Exams 07/12/25 03:15 Ordered HEAD WITHOUT CONTRAST [CT] Stat Exams 07/11/25 15:25 Completed MRI BRAIN W & W/O CONTRAST [MRI] Routine Exams 07/12/25 03:15 Ordered US ABDOMEN LIMITED [ABDOMINAL-LIMITED] [US] Routine Exams 07/12/25 03:19 Ordered Medications: Medications Generic Name Dose Route Start Last Admin Trade Name Freq PRN Reason Stop Dose Admin Amlodipine Besylate 5 mg 07/12/25 13:00 07/12/25 12:44 Amlodipine Besylate 5 Mg Tablet PO 08/11/25 12:59 5 mg QAM LYNNE Administration Aspirin 81 mg 07/12/25 10:00 07/12/25 09:26 Aspirin 81 Mg Tablet.Ec PO 08/11/25 09:59 81 mg QAM LYNNE Administration Atorvastatin Calcium 80 mg 07/12/25 22:00 07/12/25 22:31 Atorvastatin Calcium 40 Mg Tablet PO 08/11/25 21:59 80 mg QHS LYNNE Administration Cholecalciferol 2,000 unit 07/13/25 10:00 Cholecalciferol (Vitamin D3) 1000 Unit Tablet PO 08/12/25 09:59 DAILY LYNNE Cholestyramine Resin 4 gm 07/12/25 10:00 07/12/25 09:58 Cholestyramine Light 4 Gm Packet PO 08/11/25 09:59 4 gm DAILY LYNNE Administration Enoxaparin Sodium 40 mg 07/12/25 10:00 07/12/25 09:27 Enoxaparin Sodium 40 Mg/0.4 Ml Syringe SQ 08/11/25 09:59 40 mg DAILY LYNNE Administration Gabapentin 800 mg 07/12/25 15:00 07/12/25 22:32 Gabapentin 400 Mg Capsule PO 08/11/25 14:59 800 mg TID LYNNE Administration Insulin Human Lispro 0 unit 07/12/25 10:55 Insulin Lispro 1 Unit SQ 08/11/25 10:54 UD PRN HYPERGLYCEMIA Levothyroxine Sodium 125 mcg 07/12/25 10:00 07/12/25 09:26 Levothyroxine Sodium 125 Mcg Tablet PO 08/11/25 09:59 125 mcg DAILY LYNNE Administration Miscellaneous Information 1 each 07/12/25 11:15 Medication Intervention 1 Each Each 08/11/25 11:14 .RN TO CHECK LYNNE Pramipexole Dihydrochloride 0.5 mg 07/12/25 22:00 07/12/25 22:32 Pramipexole Di-Hcl 0.5 Mg Tab PO 08/11/25 21:59 0.5 mg HS LYNNE Administration Venlafaxine HCl 225 mg 07/12/25 12:00 07/12/25 11:37 Venlafaxine Hcl 75 Mg Extended Release Capsule PO 08/11/25 11:59 225 mg DAILY LYNNE Administration Discontinued Medications Generic Name Dose Route Start Last Admin Trade Name Freq PRN Reason Stop Dose Admin Aspirin 81 mg 07/12/25 10:00 Aspirin 81 Mg Tab.Chew PO 08/11/25 09:59 QAM LYNNE Aspirin 81 mg 07/12/25 03:19 07/12/25 04:14 Aspirin 81 Mg Tab.Chew PO 07/12/25 03:20 81 mg STAT ONE Administration Aspirin Confirm 07/12/25 04:05 Aspirin 81 Mg Tablet.Ec Administered 07/12/25 04:06 Dose 81 mg PO .STK-MED ONE Atorvastatin Calcium 80 mg 07/12/25 03:15 07/12/25 04:14 Atorvastatin Calcium 40 Mg Tablet PO 07/12/25 03:16 80 mg STAT STA Administration Atorvastatin Calcium Confirm 07/12/25 22:28 Atorvastatin Calcium 40 Mg Tablet Administered 07/12/25 22:29 Dose 80 mg .ROUTE .STK-MED ONE Ergocalciferol 50,000 unit 07/12/25 10:30 07/12/25 11:09 Ergocalciferol (Vitamin D2) 50,000 Unit Capsule PO 08/11/25 10:29 Not Given Q7D LYNNE Gabapentin 600 mg 07/12/25 10:00 07/12/25 09:26 Gabapentin 300 Mg Capsule PO 08/11/25 09:59 600 mg TID LYNNE Administration Potassium Chloride 20 meq in 100 mls @ 50 mls/hr 07/12/25 06:15 07/12/25 08:30 Potassium Chloride 20 Meq In Water 100ml IV 07/12/25 10:14 50 mls/hr Q2H LYNNE Administration Sodium Chloride 1,000 mls @ 50 mls/hr 07/12/25 07:30 07/12/25 07:20 Sodium Chloride 0.9% 1000 Ml IV 08/11/25 07:29 50 mls/hr .Q20H LYNNE Administration Potassium Chloride 40 meq 07/12/25 06:12 07/12/25 06:20 Potassium Chloride Tab 10 Meq Tab PO 07/12/25 06:13 40 meq STAT ONE Administration Potassium Chloride 40 meq 07/12/25 13:00 07/12/25 12:44 Potassium Chloride Tab 10 Meq Tab PO 07/12/25 13:01 40 meq ONCE ONE Administration Venlafaxine HCl 75 mg 07/12/25 12:00 Venlafaxine Hcl 75 Mg Extended Release Capsule PO 08/11/25 11:59 DAILY LYNNE Assessment/Plan (1) TIA (transient ischemic attack) Current Visit: Yes Status: Acute Assessment & Plan: -Presentation consistent with TIA given sudden onset, focal neurological symptoms, and complete resolution within hours. - CT head showed no acute process; CTA head/neck negative for major vascular occlusion; Doppler ruled out dissection. - Normal CBC and renal function; mild hypokalemia, elevated bilirubin not directly related. -Teleneurology consult for management guidance once MRI results back -Continue aspirin 81 mg PO daily -Continue atorvastatin 80 mg PO daily -Echocardiogram pending to evaluate for cardioembolic source. -MRI brain pending to evaluate for acute ischemic changes not visible on CT. -Neuro checks q4h to monitor for recurrence. -Tele -CMP/CBC reviewed Code(s): G45.9 - TRANSIENT CEREBRAL ISCHEMIC ATTACK, UNSPECIFIED (2) Bilirubinemia Current Visit: Yes Status: Acute Assessment & Plan: -Isolated elevation with otherwise normal hepatic panel (AST/ALT not reported). -RUQ ultrasound ordered to evaluate hepatobiliary pathology (stones, obstruction, parenchymal disease). -Trend LFTs and bilirubin daily. Code(s): E80.6 - OTHER DISORDERS OF BILIRUBIN METABOLISM (3) Chronic diarrhea Current Visit: Yes Status: Chronic Assessment & Plan: - 2:2 cholecystectomy hx - Started Questran light- will need RX at D/C to continue OP if helpful. Code(s): K52.9 - NONINFECTIVE GASTROENTERITIS AND COLITIS, UNSPECIFIED (4) Hypothyroidism Current Visit: Yes Status: Chronic Assessment & Plan: -Resume home levothyroxine 125 mcg PO daily. -Monitor TSH if recent labs unavailable. Code(s): E03.9 - HYPOTHYROIDISM, UNSPECIFIED (5) Obesity (BMI 30.0-34.9) Current Visit: Yes Status: Chronic Assessment & Plan: - Hold Ozempic - Advised diet and exercise control Code(s): E66.811 - OBESITY, CLASS 1 (6) Peripheral neuropathy Current Visit: Yes Status: Chronic Assessment & Plan: -Resume gabapentin 600 mg PO TID. Code(s): G62.9 - POLYNEUROPATHY, UNSPECIFIED (7) Hypokalemia Current Visit: No Status: Acute Assessment & Plan: -Mild hypokalemia with potassium at 3.2- replenish per protocol -Replete potassium PO/IV to goal >4.0. Code(s): E87.6 - HYPOKALEMIA (8) Ketonuria Current Visit: Yes Status: Acute Assessment & Plan: -UA: Significant glucose and ketones, unclear history of diabetes. -A1c 4.53 Code(s): R82.4 - ACETONURIA (9) Low HDL (under 40) Current Visit: Yes Status: Acute Assessment & Plan: - HDL 38 - High dose statin for CVA - Diet and exercise education provided to increase DVT: Lovenox Dispo: 1-3days Code status: Full Code Plan of care time spent >40 mins Code(s): E78.6 - LIPOPROTEIN DEFICIENCY
[2025-07-13] MEDS ORDERED: NON-FORMULARY ITEM (Cholecalciferol (Vitamin D3) [Vitamin D3] 50 MCG Capsule) PO SCH (10:00)
[2025-07-13] MEDS ORDERED: NON-FORMULARY ITEM (Venlafaxine Hcl [Venlafaxine Hcl Er] 150 MG Tab.Er.24) PO SCH (10:00)
--- NOTE | 2025-07-13 12:10 | XRAY ---
Indication: Elevated total bilirubin. Cholecystectomy Two-dimensional right upper quadrant abdominal sonogram performed. Comparison: None Pancreas not well seen due to overlying bowel gas. Visualized liver homogeneous in echogenicity without hepatomegaly or ascites. Gallbladder surgically absent. Common bile duct measures 6.6 mm. No intrahepatic biliary distention. Right kidney measures 9.7 x 4.8 x 3.9 cm and sonographically unremarkable. Impression: Nonvisualization pancreas. Cholecystectomy. Remaining right upper quadrant sonogram is negative.
[2025-07-13] MEDS: VITAMIN D PO SCH (12:26)
[2025-07-13] MEDS: Klor Con PO SCH ×2 (12:26→14:41)
--- NOTE | 2025-07-13 13:46 | XRAY ---
Indication: Transient ischemic attack. Cerebrovascular accident. Negative CT head, negative CTA neck, and negative CTA head exams. Sagittal, coronal, and axial MRI brain performed using pre and post T1, T2, FLAIR, diffusion, and ADC sequences. 15 cc Dotarem contrast used. Comparison: June 02, 2015. New right head ferromagnetic artifact from patient's a ring. Patient unable to remove earring. Progressive age-appropriate global atrophy and progressive mild periventricular degenerative microischemia signal bilaterally. Right occipital lobe demonstrates new small focus encephalomalacia with minimal gliosis favoring old infarct. No acute intracranial hemorrhage, abnormal extra-axial fluid collection, or mass effect. Diffusion images negative for restricted signal. Following gadolinium, there is no abnormal intra or extra-axial enhancement. 4th ventricle is midline without hydrocephalus. 7/8 cranial nerve complex bilaterally symmetric. Normal flow void signal within the major intracerebral circulation. Normal appearing craniocervical junction and sella turcica. Paranasal sinuses are clear. Impression: 1. New ferromagnetic artifact. 2. Progressive age-appropriate atrophy and degenerative micro ischemia. 3. New small focus remote infarct right occipital lobe. 4. No acute intracranial abnormalities or evidence for evolving large vessel territorial stroke. 5. Negative contrast exam.
--- NOTE | 2025-07-13 16:47 | PCM.DS ---
Discharge Summary Date of Admission: 07/11/25 21:36 Date of Discharge: 07/13/25 Admitting Physician: NOAH GRIMALDO MD Consults: Consults on Case 07/11/25 16:49 Consult Neurology ROUTINE 07/12/25 03:15 Consult Neurology ROUTINE 07/13/25 13:58 Consult Neurology ROUTINE Primary Care Provider: MALLORIE COELHO Allergies Allergies No Known Drug Allergies Allergy (Verified 07/11/25 15:27) Hospital Summary - Hospital Course Hospital Course: Ms. Abraham is a 60-year-old female with past medical history of hypothyroidism, prior cerebrovascular accident (2013), and peripheral neuropathy who presented to the ED with acute onset left-sided paresthesias beginning at 1:00 PM while driving. She described numbness affecting the entire left side, resembling her prior stroke episode, though notably without dysarthria or slurred speech. Symptoms lasted until approximately 6:00 PM and resolved spontaneously by the time of evaluation. She denied headache, visual disturbances, gait difficulty, chest pain, dyspnea, or systemic complaints. Initial workup included a CT head, which demonstrated a chronic right basal ganglia infarct, chronic deep white matter ischemic changes, and age-related atrophy but no acute intracranial abnormality. CTA head was unremarkable, while CTA neck initially raised concern for possible vascular dissection; however, follow-up carotid Doppler ultrasound showed no evidence of dissection or aneurysm. Routine labs revealed WBC 7.6, hemoglobin 15.1, platelets 241, sodium 139, potassium 3.2, BUN 16, creatinine 0.72, and total bilirubin elevated at 2.41. Urinalysis showed glucosuria and ketonuria; HbA1c later returned at 4.53. The patient was admitted for observation, started on aspirin 81 mg PO daily and atorvastatin 80 mg PO daily, with neuro checks every 4 hours and continuous cardiac monitoring. Hypokalemia was corrected with electrolyte repletion. Given isolated hyperbilirubinemia, a right upper quadrant ultrasound was obtained, which showed non-visualization of the pancreas, prior cholecystectomy, but otherwise normal liver architecture with no hepatomegaly or ascites. Bilirubin trended down from 2.40 to 1.50. On 07/13/25, MRI brain was performed and reviewed with neurology. Imaging demonstrated a new feral magnetic artifact, progressive but age-appropriate atrophy with degenerative microischemic changes, and a new small focus of remote infarct in the right occipital lobe. Importantly, there was no evidence of acute intracranial abnormality or evolving large vessel territorial stroke. Based on these findings, neurology recommended dual antiplatelet therapy with aspirin and clopidogrel for 21 days, followed by aspirin monotherapy thereafter. High- intensity statin therapy with atorvastatin 80 mg PO daily was reaffirmed. Neurology also advised outpatient follow-up with the patients primary care provider for review of echocardiogram results and ordering of a Holter monitor to evaluate for occult arrhythmia. Neurology follow-up as an outpatient was also recommended. The patient was evaluated by physical therapy during admission, who recommended outpatient therapy for strengthening and gait support. Ms. Abraham declined outpatient PT at this time, preferring to continue self-directed activity at home. At the time of discharge, Ms. Vallejo left-sided paresthesias had completely resolved, her bilirubin was trending down, electrolytes were corrected, and she was clinically stable. Discharge Note New Diagnosis: Stroke New Medications: Plavix 75mg daily and ASA dual therapy x 21 days then just 81mg ASA there after- Atorvastatin 80mg QHS Follow Up: PCP/Neurology Results pending: Echo Outpatient testing to order: Holter Monitor I spent 35 minutes [id number] with the patient on the day of discharge performing discharge exam, discussing hospital stay and discharge instructions with patient and caregivers, preparation of discharge records, prescriptions & referral forms and addressing any questions/concerns the patient had as documented above. - Vitals & Intake/Output Vital Signs: Vital Signs Temperature 97.2 F 07/13/25 11:53 Pulse Rate 78 07/13/25 11:53 Respiratory Rate 16 07/13/25 11:53 Blood Pressure 152/97 07/13/25 11:53 O2 Sat by Pulse Oximetry 93 L 07/13/25 11:53 Intake & Output: Intake & Output 07/11/25 07/12/25 07/13/25 07/14/25 11:59 11:59 11:59 11:59 Intake Total 600 1333 240 Balance 600 1333 240 Weight 74 kg - Lab Result Diagrams: 07/13/25 04:14 07/13/25 11:59 Lab Results-Last 24 Hrs: Lab Results-Last 24 Hours 07/12/25 07/13/25 07/13/25 Range/Units 20:58 04:14 04:14 WBC 6.9 (3.98-10.04) x10^3/uL RBC 4.57 (3.93-5.22) x10^6/uL Hgb 14.0 (11.2-15.7) g/dL Hct 41.2 (34.1-44.9) % MCV 90.2 (79.4-94.8) fL MCH 30.6 (25.6-32.2) pg MCHC 34.0 (32.2-35.5) g/dL RDW 14.3 (11.7-14.4) % Plt Count 239 (182-369) x10^3/uL MPV 11.5 (9.4-12.3) fL Sodium 139 (135-145) mmol/L Potassium 3.2 L (3.5-5.1) mmol/L Chloride 104 (98-107) mmol/L Carbon Dioxide 28 (22-30) mmol/L Anion Gap 10.0 (5-15) MEQ/L BUN 10 (7-17) mg/dL Creatinine 0.63 (0.52-1.04) mg/dL Estimated GFR 100.9 ML/MIN Glucose 97 (74-106) mg/dL POC Glucometer 86 (74 to 106) mg/dL Calcium 9.0 (8.4-10.2) mg/dL Magnesium (1.6-2.3) mg/dL Total Bilirubin 1.50 H (0.2-1.3) mg/dL AST 29 (14-36) U/L ALT 15 (0-35) U/L Alkaline Phosphatase 72 (38-126) U/L Serum Total Protein 6.5 (6.3-8.2) g/dL Albumin 3.8 (3.5-5.0) g/dL 07/13/25 07/13/25 07/13/25 Range/Units 04:14 07:26 11:39 WBC (3.98-10.04) x10^3/uL RBC (3.93-5.22) x10^6/uL Hgb (11.2-15.7) g/dL Hct (34.1-44.9) % MCV (79.4-94.8) fL MCH (25.6-32.2) pg MCHC (32.2-35.5) g/dL RDW (11.7-14.4) % Plt Count (182-369) x10^3/uL MPV (9.4-12.3) fL Sodium (135-145) mmol/L Potassium (3.5-5.1) mmol/L Chloride (98-107) mmol/L Carbon Dioxide (22-30) mmol/L Anion Gap (5-15) MEQ/L BUN (7-17) mg/dL Creatinine (0.52-1.04) mg/dL Estimated GFR ML/MIN Glucose (74-106) mg/dL POC Glucometer 85 83 (74 to 106) mg/dL Calcium (8.4-10.2) mg/dL Magnesium 1.8 (1.6-2.3) mg/dL Total Bilirubin (0.2-1.3) mg/dL AST (14-36) U/L ALT (0-35) U/L Alkaline Phosphatase (38-126) U/L Serum Total Protein (6.3-8.2) g/dL Albumin (3.5-5.0) g/dL 07/13/25 Range/Units 11:59 WBC (3.98-10.04) x10^3/uL RBC (3.93-5.22) x10^6/uL Hgb (11.2-15.7) g/dL Hct (34.1-44.9) % MCV (79.4-94.8) fL MCH (25.6-32.2) pg MCHC (32.2-35.5) g/dL RDW (11.7-14.4) % Plt Count (182-369) x10^3/uL MPV (9.4-12.3) fL Sodium (135-145) mmol/L Potassium 3.8 (3.5-5.1) mmol/L Chloride (98-107) mmol/L Carbon Dioxide (22-30) mmol/L Anion Gap (5-15) MEQ/L BUN (7-17) mg/dL Creatinine (0.52-1.04) mg/dL Estimated GFR ML/MIN Glucose (74-106) mg/dL POC Glucometer (74 to 106) mg/dL Calcium (8.4-10.2) mg/dL Magnesium (1.6-2.3) mg/dL Total Bilirubin (0.2-1.3) mg/dL AST (14-36) U/L ALT (0-35) U/L Alkaline Phosphatase (38-126) U/L Serum Total Protein (6.3-8.2) g/dL Albumin (3.5-5.0) g/dL Micro Results-Entire Visit: Accuchecks Date 07/13/25 Date 07/13/25 Date 07/12/25 Time 11:52 Time 07:30 Time 21:30 - Radiology Exams Ordered Rad Exams-Entire Visit: Radiology Procedures Category Date Time Status ABDOMINAL-LIMITED [US] Routine Exams 07/13/25 08:00 Completed CAROTID BILATERAL [US] Stat Exams 07/11/25 19:[address] ANGIOGRAPHY NECK [CT] Stat Exams 07/11/25 16:26 Completed CTA HEAD W AND/OR WO CONTRAST [CT] Stat Exams 07/11/25 16:25 Completed ECHO W/2D AND DOPPLER [US] Routine Exams 07/13/25 08:00 Taken MRI BRAIN W & W/O CONTRAST [MRI] Routine Exams 07/13/25 13:00 Completed - Procedures and Test Procedures and Tests throughout Hospitalization: Therapy Orders & Screens 07/12/25 03:15 PT Eval & Treat (MD Order) ONCE Reason for Eval:: TIA/CVA Diagnosis: obervation EKG STAT Comment: Diagnosis: obervation OT Eval and Treat (MD Order) ONCE Comment: Physician Instructions: Reason For Exam: Diagnosis: obervation 07/13/25 08:00 ST Eval & Treat (MD Order) .as ordered Comment: Physician Instructions: Reason For Exam: Evaluate: Yes: TIA Treat: Yes Reason for Eval: TIA Diagnosis: obervation Discharge Exam General Appearance: no apparent distress Neurologic Exam: alert, oriented x 3, cooperative Eye Exam: PERRL Ears, Nose, Throat Exam: normal ENT inspection Neck Exam: normal inspection Respiratory Exam: normal breath sounds, lungs clear Cardiovascular Exam: regular rate/rhythm, normal heart sounds Gastrointestinal/Abdomen Exam: soft, normal bowel sounds Pelvic Exam: deferred Rectal Exam: deferred Back Exam: normal inspection Extremity Exam: normal inspection Skin Exam: normal color Final Diagnosis/Problem List - Final Discharge Diagnosis/Problem (1) TIA (transient ischemic attack) Current Visit: Yes Status: Acute Assessment & Plan: -Patient presented with acute left-sided paresthesias that fully resolved within several hours, consistent with TIA. -CT head showed only chronic infarct and ischemic changes; CTA head/neck negative for occlusion; carotid Doppler without dissection. -MRI revealed a new small remote infarct in the right occipital lobe, progressive age-appropriate atrophy, and degenerative microischemia, but no acute infarct or evolving large vessel stroke. -Continue aspirin 81 mg PO daily lifelong. -Add clopidogrel 75 mg PO daily for 21 days, then discontinue and continue aspirin monotherapy thereafter (per neurology). -Continue atorvastatin 80 mg PO daily for secondary stroke prevention -Neurology follow-up recommended. -Primary care follow-up for echocardiogram results and Holter monitor to evaluate for arrhythmia. -Patient advised to seek immediate medical attention for recurrent neurological symptoms. -PT evaluation recommended ongoing outpatient therapy for strengthening and gait support-Patient declined at this time, opting for self-directed activity at home.Patient advised of risks/benefits and encouraged to reconsider if functional decline occurs. Primary care follow-up to reassess mobility and function. Code(s): G45.9 - TRANSIENT CEREBRAL ISCHEMIC ATTACK, UNSPECIFIED (2) Bilirubinemia Current Visit: Yes Status: Acute Assessment & Plan: -Initially elevated to 2.40; trending down to 1.50 prior to discharge. -RUQ ultrasound demonstrated non-visualization of the pancreas, prior cholecystectomy, no hepatomegaly, and no ascites. No acute hepatobiliary abnormality identified. -Trend LFTs and bilirubin with primary care follow-up. -Monitor clinically for jaundice, abdominal pain, or new hepatic symptoms. Code(s): E80.6 - OTHER DISORDERS OF BILIRUBIN METABOLISM (3) Chronic diarrhea Current Visit: Yes Status: Chronic Assessment & Plan: Continue Questran Light as needed for bile acidrelated diarrhea. Outpatient follow-up to determine long-term need. Code(s): K52.9 - NONINFECTIVE GASTROENTERITIS AND COLITIS, UNSPECIFIED (4) Hypothyroidism Current Visit: Yes Status: Chronic Assessment & Plan: Continue levothyroxine 125 mcg PO daily. Code(s): E03.9 - HYPOTHYROIDISM, UNSPECIFIED (5) Obesity (BMI 30.0-34.9) Current Visit: Yes Status: Chronic Assessment & Plan: Counseling provided on diet and exercise modification. Code(s): E66.811 - OBESITY, CLASS 1 (6) Peripheral neuropathy Current Visit: Yes Status: Chronic Assessment & Plan: Continue gabapentin 600 mg PO TID. Code(s): G62.9 - POLYNEUROPATHY, UNSPECIFIED (7) Hypokalemia Current Visit: No Status: Acute Assessment & Plan: Admission potassium 3.2, repleted and normalized during hospitalization Code(s): E87.6 - HYPOKALEMIA (8) Ketonuria Current Visit: Yes Status: Acute Assessment & Plan: UA showed glucose and ketones; A1c returned at 4.53, not consistent with diabetes. Possibly transient or stress-related; no evidence of hyperglycemia inpatient. Outpatient follow-up to monitor for metabolic abnormalities if symptoms recur. Code(s): R82.4 - ACETONURIA (9) Low HDL (under 40) Current Visit: Yes Status: Acute Assessment & Plan: High-intensity statin already in place (atorvastatin 80 mg). Lifestyle modification emphasized: increased aerobic activity, heart-healthy diet. Code(s): E78.6 - LIPOPROTEIN DEFICIENCY - Discharge Discharge Date: 07/13/25 Disposition: Home, Self-Care Condition: Stable Prescriptions: New Atorvastatin Calcium 80 mg PO DAILY 30 Days #30 tablet Aspirin EC 81 mg [Ecotrin 81 mg] 81 mg PO QAM 30 Days #30 tablet Clopidogrel Bisulfate [Plavix] 75 mg PO DAILY 21 Days #21 tablet Cholestyramine Light 4 gm [QUESTRAN Light 4 GM Packet] 4 gm PO DAILY 14 Days #14 pkt Continue Venlafaxine HCl [Venlafaxine HCl ER] 150 mg PO DAILY Venlafaxine HCl ER 75 mg [Effexor XR 75 MG] 75 mg PO DAILY Levothyroxine Sodium 50 Mcg [Synthroid 50 Mcg] 125 mcg PO DAILY Gabapentin 800 mg PO TID Semaglutide [Ozempic] 2 mg SQ WEEKLY Pramipexole Di-HCl [Pramipexole Dihydrochloride] 0.5 mg PO HS Cholecalciferol (Vitamin D3) [Vitamin D3] 50 mcg PO DAILY Empagliflozin [Jardiance] 25 mg PO DAILY Prazosin HCl 2 mg PO HS Discontinued Atorvastatin Calcium [Lipitor 20MG Tablet] 20 mg PO HS Follow up with: MALLORIE COELHO NP [Primary Care Provider, UNKNOWN]
[2025-07-13 17:24] VITALS: BP 136/86; PULSE 77; TEMP 98.2; O2SAT 96
== END 2025-07-13 18:38 | disposition home or self-care (01) ==
LOC: ED 15:19 → MED SURG 21:36
PROVIDERS: ADMIT Internal Medicine; ATTEND Internal Medicine
DX: G45.9 Transient cerebral ischemic attack, unspecified (principal); E80.6 Other disorders of bilirubin metabolism; K52.9 Noninfective gastroenteritis and colitis, unspecified; E03.9 Hypothyroidism, unspecified; E66.811 Obesity, class 1; G62.9 Polyneuropathy, unspecified; E87.6 Hypokalemia; R82.4 Acetonuria; E78.6 Lipoprotein deficiency; Z79.899 Other long term (current) drug therapy; Z86.73 Personal history of transient ischemic attack (TIA), and cerebral infarction without residual deficits
CPT/HCPCS: 36415; 70450; 70496; 70498; 70553; 76705; 80053; 80061; 81001; 82947; 83036; 83721; 83735; 84132; 84439; 84443; 85025; 85027; 85610; 85730; 93005; 93041; 93268; 93306; 93880; 94760; 96105; 97161; 99291; G0378; Q3014